=== PATIENT | female | born 1960 | race Hispanic/Latino ===

== ENCOUNTER 2017-03-11 18:45 | Emergency (ER) | payer MEDICARE ==
[~2017-03-11 18:45] MED LIST: CALC667T5 PO; CARV6.25 PO; CHOL200013 PO; CLON0.2T PO; FOLI1TAB85 PO; HYDR-3421 PO; HYDR100T27 PO; INSU3INS5 SQ; LEVO250T2 PO; LOSA100T29 PO; PRAV20TA4 PO
[2017-03-11 19:21] LABS: CREATININE 4.4 mg/dL (0.5-1.5); HEMATOCRIT 26.7 % (36-48); LYMPHOCYTES % (AUTO) 14.3 % (21.0-51.0); MEAN CORPUSCULAR HEMOGLOBIN 32.9 pg (27.0-33.0); MEAN CORPUSCULAR HGB CONC 33.4 g/dL (32.0-36.0); MEAN CORPUSCULAR VOLUME 98.5 fL (79-99); MONOCYTES % (AUTO) 9.2 % (3.0-13.0); NEUTROPHILS % (AUTO) 69.5 % (40.0-77.0); NUCLEATED RED BLOOD CELLS 0.1 % (0.0-0.19); PLATELET COUNT (AUTO) 73 K/uL (130-400); POTASSIUM 4.1 mmol/L (3.5-5.1); RED BLOOD CELL COUNT(AUTO) 2.71 MIL/uL (4.00-5.50); RED CELL DISTRIBUTION WIDTH 18.4 % (11.0-15.5); WHITE BLOOD COUNT (AUTO) 3.5 K/uL (4.8-10.8)
[2017-03-11 19:27] LABS: BILIRUBIN,DIRECT 0.2 mg/dL (0.0-0.3); BILIRUBIN,TOTAL 0.8 mg/dL (0.2-1.0); TOTAL PROTEIN, SERUM 5.8 g/dL (6.0-8.3)
[2017-03-11] MEDS ORDERED: LIDOCAINE 5% TOPICAL PATCH TP ONE (19:39)
[2017-03-11] MEDS ORDERED: TRAMADOL /APAP 37.5MG/325MG TAB ONE (19:40)
[2017-03-11 20:24] LABS: APPEARANCE,URINE CLEAR (CLEAR); BILIRUBIN,URINE NEGATIVE (NEGATIVE); COLOR,URINE YELLOW (YELLOW); GLUCOSE, URINE (UA) 250 mg/dL (NEGATIVE); KETONES,URINE NEGATIVE (NEGATIVE); LEUKOCYTE ESTERASE ,URINE NEGATIVE (NEGATIVE); NITRATE,URINE NEGATIVE (NEGATIVE); OCCULT BLOOD,URINE TRACE-INTACT (NEGATIVE); PH,URINE 8.5 (5.0-8.0); PROTEIN,URINE >=300 (NEGATIVE); UROBILINOGEN,URINE 0.2 mg/dL (0.2-1.0)
[2017-03-11 20:40] LABS: BACTERIA,URINE Rare /HPF (None Seen); SQUAMOUS EPITHELIAL CELL,UR Rare /LPF (0-2); WBC,URINE 0-1 /HPF (0-1)
== END 2017-03-11 21:33 | disposition home or self-care (01) ==
LOC: EDH 18:45
DX: M54.6 Pain in thoracic spine (principal); R07.9 Chest pain, unspecified; D64.9 Anemia, unspecified; B02.9 Zoster without complications; J44.9 Chronic obstructive pulmonary disease, unspecified; I12.0 Hypertensive chronic kidney disease with stage 5 chronic kidney disease or end stage renal disease; E11.22 Type 2 diabetes mellitus with diabetic chronic kidney disease; N18.6 End stage renal disease; Z99.2 Dependence on renal dialysis
CPT/HCPCS: 36415; 80048; 80076; 81001; 83690; 84484; 85025; 93005

== ENCOUNTER 2017-04-01 09:36 | Emergency (ER) | payer MEDICARE ==
[2017-04-01 09:53] LABS: BASOPHILS % (AUTO) 2.8 % (0.0-5.0); EOSINOPHILS % (AUTO) 4.4 % (0.0-8.0); HEMATOCRIT 31.3 % (36-48); LYMPHOCYTES % (AUTO) 16.6 % (21.0-51.0); MEAN CORPUSCULAR HEMOGLOBIN 34.3 pg (27.0-33.0); MEAN CORPUSCULAR HGB CONC 34.1 g/dL (32.0-36.0); MEAN CORPUSCULAR VOLUME 100.5 fL (79-99); MONOCYTES % (AUTO) 6.9 % (3.0-13.0); NEUTROPHILS % (AUTO) 69.3 % (40.0-77.0); NUCLEATED RED BLOOD CELLS 0.1 % (0.0-0.19); PLATELET COUNT (AUTO) 129 K/uL (130-400); RED BLOOD CELL COUNT(AUTO) 3.11 MIL/uL (4.00-5.50); RED CELL DISTRIBUTION WIDTH 18.7 % (11.0-15.5); WHITE BLOOD COUNT (AUTO) 4.5 K/uL (4.8-10.8)
[2017-04-01 10:02] LABS: POTASSIUM 4.3 mmol/L (3.5-5.1)
== END 2017-04-01 14:40 | disposition home or self-care (01) ==
LOC: EDH 09:36
DX: E87.70 Fluid overload, unspecified (principal); E11.22 Type 2 diabetes mellitus with diabetic chronic kidney disease; I12.0 Hypertensive chronic kidney disease with stage 5 chronic kidney disease or end stage renal disease; N18.6 End stage renal disease; E78.5 Hyperlipidemia, unspecified; Z79.4 Long term (current) use of insulin; Z99.2 Dependence on renal dialysis
CPT/HCPCS: 36415; 71045; 80048; 84484; 85025; 93005

== ENCOUNTER 2017-05-01 21:53 | Inpatient (IN) | payer MEDICARE ==
[~2017-05-01] VITALS: Ht 157.5 cm; Wt 67.2 kg
[2017-05-01 22:17] LABS: EOSINOPHILS % (AUTO) 0.5 % (0.0-8.0); HEMATOCRIT 30.5 % (36-48); LYMPHOCYTES % (AUTO) 19.5 % (21.0-51.0); MEAN CORPUSCULAR HEMOGLOBIN 33.1 pg (27.0-33.0); MEAN CORPUSCULAR HGB CONC 33.5 g/dL (32.0-36.0); MONOCYTES % (AUTO) 12.6 % (3.0-13.0); NEUTROPHILS % (AUTO) 66.4 % (40.0-77.0); PLATELET COUNT (AUTO) 66 K/uL (130-400); RED BLOOD CELL COUNT(AUTO) 3.09 MIL/uL (4.00-5.50); RED CELL DISTRIBUTION WIDTH 15.7 % (11.0-15.5); WHITE BLOOD COUNT (AUTO) 3.5 K/uL (4.8-10.8)
[2017-05-01 22:24] LABS: CREATININE 6.7 mg/dL (0.5-1.5); POTASSIUM 5.3 mmol/L (3.5-5.1)
[2017-05-01 22:29] LABS: ALBUMIN 3.1 g/dL (3.5-5.0); BILIRUBIN,TOTAL 0.9 mg/dL (0.2-1.0); TOTAL PROTEIN, SERUM 6.3 g/dL (6.0-8.3)
[2017-05-01] MEDS ORDERED: ONDANSETRON HCL 4 MG/2 ML VIAL ONE (22:57)
[2017-05-02] MEDS ORDERED: FUROSEMIDE 10 MG/ML 4ML VIAL ONE (00:36)
[2017-05-02] MEDS ORDERED: CEFTRIAXONE SODIUM 2 GM VIAL ONE (00:36)
[2017-05-02 06:26] LABS: CREATININE 7.3 mg/dL (0.5-1.5); INR 1.3 (0.85-1.15); PARTIAL THROMBOPLASTIN TIME 28.8 SEC (26.3-35.5); POTASSIUM 5.3 mmol/L (3.5-5.1); PROTHROMBIN TIME 13.6 SEC (9.6-11.6)
[2017-05-02 06:32] LABS: BASOPHILS % (AUTO) 1.4 % (0.0-5.0); EOSINOPHILS % (AUTO) 0.9 % (0.0-8.0); HEMATOCRIT 30.5 % (36-48); LYMPHOCYTES % (AUTO) 18.4 % (21.0-51.0); MEAN CORPUSCULAR HEMOGLOBIN 34.6 pg (27.0-33.0); MEAN CORPUSCULAR HGB CONC 34.5 g/dL (32.0-36.0); MEAN CORPUSCULAR VOLUME 100.1 fL (79-99); MONOCYTES % (AUTO) 8.5 % (3.0-13.0); NEUTROPHILS % (AUTO) 70.8 % (40.0-77.0); NUCLEATED RED BLOOD CELLS 0.1 % (0.0-0.19); PLATELET COUNT (AUTO) 71 K/uL (130-400); RED BLOOD CELL COUNT(AUTO) 3.05 MIL/uL (4.00-5.50); RED CELL DISTRIBUTION WIDTH 15.8 % (11.0-15.5); WHITE BLOOD COUNT (AUTO) 3.3 K/uL (4.8-10.8)
[2017-05-02] MEDS ORDERED: ONDANSETRON HCL 4 MG/2 ML VIAL ONE (06:40)
[2017-05-02 07:28] LABS: B-TYPE NATRIURETIC PEPTIDE 3840 pg/mL (0-100)
[2017-05-02 09:38] VITALS: BP 181/72
[2017-05-02] MEDS ORDERED: GLUCAGON 1MG KIT 1 MG ML IM PRN (09:45)
[2017-05-02] MEDS ORDERED: MORPHINE SULFATE 2 MG/ML 1ML SYG IVP PRN (09:45)
[2017-05-02] MEDS ORDERED: POTASSIUM CHLORIDE 10% ELIXIR 20 MEQ/15 ML UDCUP PO PRN (09:45)
[2017-05-02] MEDS ORDERED: NITROGLYCERIN 0.4 MG SL TAB SL PRN (09:45)
[2017-05-02] MEDS ORDERED: CLONIDINE HCL 0.1 MG TABLET PO PRN (09:45)
[2017-05-02] MEDS ORDERED: LIDOCAINE HCL-MPF 1% 2ML VIAL IJ PRN (09:45)
[2017-05-02] MEDS ORDERED: POTASSIUM CHLORIDE 20MEQ/100ML 100 ML IV PRN (09:45)
[2017-05-02] MEDS ORDERED: POTASSIUM CHLORIDE 20 MEQ ERTAB PO PRN (09:45)
[2017-05-02] MEDS ORDERED: SODIUM CHLORIDE 0.9% 10 ML VIAL IVP SCH (09:45)
[2017-05-02] MEDS ORDERED: ONDANSETRON HCL 4 MG/2 ML VIAL IVP PRN (09:45)
[2017-05-02] MEDS ORDERED: LACTULOSE 20 GM/30 ML UDCUP PO PRN (09:45)
[2017-05-02] MEDS ORDERED: IPRATROPIUM/ALBUTEROL SULFATE 3 ML SOLUTION IH PRN (09:45)
[2017-05-02] MEDS ORDERED: DEXTROSE 50%-WATER 50 ML DISP.SYRIN IV PRN (09:45)
[2017-05-02] MEDS ORDERED: ACETAMINOPHEN 325 MG TAB PO PRN ×2 (09:45)
[2017-05-02 11:00] VITALS: BP 181/69
[2017-05-02] MEDS: INSULIN R PO SSI SQ SCH ×3 (11:30→21:43)
[2017-05-02] MEDS: HYDRALAZINE HCL 25 MG TABLET PO SCH ×3 (14:00→21:31)
[2017-05-02] MEDS: CLONIDINE HCL 0.2 MG TABLET PO SCH ×3 (14:00→21:35)
[2017-05-02] MEDS ORDERED: 0.9% SODIUM CHLORIDE 250 ML IV BAG IV PRN (14:15)
[2017-05-02] MEDS ORDERED: HEPARIN SODIUM 5000UNIT/ML 1ML VIAL IJ PRN (14:15)
[2017-05-02] MEDS ORDERED: SODIUM CHLORIDE 0.9% 1000ML 1,000 ML IV PRN (14:15)
[2017-05-02] MEDS ORDERED: ALBUMIN (HUMAN) 25% 100 ML IV PRN (14:15)
[2017-05-02 16:00] VITALS: BP 210/91
[2017-05-02] MEDS: CALCIUM ACETATE 667 MG CAPSULE PO SCH (17:04)
[2017-05-02 20:00] VITALS: BP 184/71
[2017-05-02] MEDS: HYDROXYZINE HCL 25 MG TABLET PO SCH (21:35)
[2017-05-02] MEDS: LOSARTAN 100 MG TABLET PO SCH (21:35)
[2017-05-02] MEDS: CARVEDILOL 6.25 MG TABLET PO SCH (21:36)
[2017-05-03] VITALS (12 sets, daily range): BP systolic 139–187; BP diastolic 56–82
[2017-05-03 03:57] LABS: CREATININE 5.7 mg/dL (0.5-1.5); PHOSPHORUS 5.6 mg/dL (2.5-4.9); POTASSIUM 5.2 mmol/L (3.5-5.1)
[2017-05-03 03:59] LABS: INR 1.39 (0.85-1.15); PARTIAL THROMBOPLASTIN TIME 31.2 SEC (26.3-35.5); PROTHROMBIN TIME 14.5 SEC (9.6-11.6)
[2017-05-03] MEDS: INSULIN R PO SSI SQ SCH ×4 (07:30→21:00)
[2017-05-03] MEDS: HYDRALAZINE HCL 25 MG TABLET PO SCH ×3 (09:18→21:16)
[2017-05-03] MEDS: CARVEDILOL 6.25 MG TABLET PO SCH ×2 (09:19→21:16)
[2017-05-03] MEDS: CLONIDINE HCL 0.2 MG TABLET PO SCH ×3 (09:20→21:15)
[2017-05-03] MEDS: ATORVASTATIN CALCIUM 10 MG TABLET PO SCH (09:20)
[2017-05-03] MEDS: CALCIUM ACETATE 667 MG CAPSULE PO SCH ×2 (12:00→15:58)
[2017-05-03] MEDS ORDERED: SODIUM POLYSTYRENE SULFONATE 15 GM/60 ML ML ONE (15:36)
[2017-05-03] MEDS ORDERED: SODIUM POLYSTYRENE SULFONATE 15 GM/60 ML ML RC ONE (16:00)
[2017-05-03] MEDS: LOSARTAN 100 MG TABLET PO SCH (21:16)
[2017-05-03] MEDS: HYDROXYZINE HCL 25 MG TABLET PO SCH (21:16)
[2017-05-04] VITALS: BP 174/72
[2017-05-04 04:00] VITALS: BP 162/60
[2017-05-04 04:06] LABS: CREATININE 7.1 mg/dL (0.5-1.5); POTASSIUM 4.6 mmol/L (3.5-5.1)
[2017-05-04 04:07] LABS: HEMATOCRIT 28.8 % (36-48); MEAN CORPUSCULAR HEMOGLOBIN 34.3 pg (27.0-33.0); NUCLEATED RED BLOOD CELLS 0.1 % (0.0-0.19); PLATELET COUNT (AUTO) 72 K/uL (130-400); RED BLOOD CELL COUNT(AUTO) 2.93 MIL/uL (4.00-5.50); WHITE BLOOD COUNT (AUTO) 3.4 K/uL (4.8-10.8)
[2017-05-04] MEDS: INSULIN R PO SSI SQ SCH ×3 (06:52→16:30)
[2017-05-04 08:00] VITALS: BP 194/74
[2017-05-04] MEDS: CALCIUM ACETATE 667 MG CAPSULE PO SCH ×3 (08:35→16:58)
[2017-05-04] MEDS ORDERED: FOLIC ACID/VITAMIN B COMP W-C 1 MG CAPSULE PO SCH (09:00)
[2017-05-04] MEDS: HYDRALAZINE HCL 25 MG TABLET PO SCH ×2 (09:30→16:58)
[2017-05-04] MEDS: CLONIDINE HCL 0.2 MG TABLET PO SCH ×2 (09:30→16:57)
[2017-05-04] MEDS: ATORVASTATIN CALCIUM 10 MG TABLET PO SCH (09:31)
[2017-05-04] MEDS: CARVEDILOL 6.25 MG TABLET PO SCH (09:31)
[2017-05-04 11:00] VITALS: BP 177/68
[2017-05-04] MEDS ORDERED: ALBUMIN (HUMAN) 25% 100 ML IV PRN (15:00)
[2017-05-04] MEDS ORDERED: HEPARIN SODIUM 5000UNIT/ML 1ML VIAL IJ PRN (15:00)
[2017-05-04] MEDS ORDERED: 0.9% SODIUM CHLORIDE 250 ML IV BAG IV PRN (15:00)
[2017-05-04] MEDS ORDERED: SODIUM CHLORIDE 0.9% 1000ML 1,000 ML IV PRN (15:00)
[2017-05-04 16:00] VITALS: BP 170/75
[2017-05-04 16:57] VITALS: BP 170/75
== END 2017-05-04 18:35 | disposition home or self-care (01) | DRG 291 ==
LOC: EDH 21:53 → EDHIP 05-02 02:20 → OBSVTOIN 05-02 02:20 → 3BH 05-02 09:30
PROVIDERS: ADMIT Family Medicine; ATTEND Family Medicine
PROC: 5A1D70Z Performance of Urinary Filtration, Intermittent, Less than 6 Hours Per Day (ICD-10-PCS; principal; 2017-05-02)
PROC: 5A1D70Z Performance of Urinary Filtration, Intermittent, Less than 6 Hours Per Day (ICD-10-PCS; 2017-05-04)
DX: I13.2 Hypertensive heart and chronic kidney disease with heart failure and with stage 5 chronic kidney disease, or end stage renal disease (principal); N18.6 End stage renal disease; E11.22 Type 2 diabetes mellitus with diabetic chronic kidney disease; E11.51 Type 2 diabetes mellitus with diabetic peripheral angiopathy without gangrene; D69.6 Thrombocytopenia, unspecified; E87.5 Hyperkalemia; I50.23 Acute on chronic systolic (congestive) heart failure; I34.0 Nonrheumatic mitral (valve) insufficiency; E87.70 Fluid overload, unspecified; I43 Cardiomyopathy in diseases classified elsewhere; D63.8 Anemia in other chronic diseases classified elsewhere; J44.9 Chronic obstructive pulmonary disease, unspecified; E78.5 Hyperlipidemia, unspecified; D72.819 Decreased white blood cell count, unspecified; E78.00 Pure hypercholesterolemia, unspecified; I16.0 Hypertensive urgency; I25.10 Atherosclerotic heart disease of native coronary artery without angina pectoris; Z99.2 Dependence on renal dialysis; Z91.19 Patient's noncompliance with other medical treatment and regimen; Z83.3 Family history of diabetes mellitus; Z82.49 Family history of ischemic heart disease and other diseases of the circulatory system
CPT/HCPCS: 36415; 71045; 71046; 80048; 80053; 82948; 83880; 84100; 84484; 85025; 85027; 85610; 85730; 87040; 90935; 93005; 93306; 94664; 99291; J0696; J1815; J1940; J2405; J7030

== ENCOUNTER 2018-08-23 02:36 | Inpatient (IN) | payer MEDICARE ==
[~2018-08-23] VITALS: Ht 154.9 cm; Wt 66.0 kg
[~2018-08-23 02:36] MED LIST changes: +ASPI-555 PO; +ATOR20TA65 PO; -CALC667T5 PO; +CARV12.511 PO; -CARV6.25 PO; -HYDR-3421 PO; -LOSA100T29 PO; +LOSA100T58 PO; -PRAV20TA4 PO; +TRAZ-185 PO
[2018-08-23] MEDS ORDERED: CALCIUM GLUCONATE 1 GM/10 ML VIAL IV ONE (02:39)
[2018-08-23] MEDS ORDERED: SODIUM BICARB 50MEQ 50ML VIAL ONE (02:43)
[2018-08-23] MEDS ORDERED: DEXTROSE 50%-WATER 50 ML DISP.SYRIN IV ONE (02:50)
[2018-08-23] MEDS ORDERED: INSULIN HUMULIN R 100 UNIT/ML 3ML ONE (02:52)
[2018-08-23 03:16] LABS: ABG BASE EXCESS -2.2 mmol/L (-2.0-3.0); ABG HCO3 22.9 mmol/L (21.0-28.0); ABG OXYGEN SATURATION 97.8 % (95.0-99.0); ABG PCO2 41 mmHg (32-45)
[2018-08-23 03:19] LABS: BASOPHILS % (AUTO) 1.2 % (0.0-5.0); EOSINOPHILS % (AUTO) 2.1 % (0.0-8.0); HEMATOCRIT 40.7 % (36-48); LYMPHOCYTES % (AUTO) 10.6 % (21.0-51.0); MEAN CORPUSCULAR HEMOGLOBIN 35.9 pg (27.0-33.0); MEAN CORPUSCULAR HGB CONC 34.6 g/dL (32.0-36.0); MEAN CORPUSCULAR VOLUME 103.7 fL (79-99); MONOCYTES % (AUTO) 10.5 % (3.0-13.0); NEUTROPHILS % (AUTO) 75.6 % (40.0-77.0); NUCLEATED RED BLOOD CELLS 0.1 % (0.0-0.19); PLATELET COUNT (AUTO) 182 K/uL (130-400); RED BLOOD CELL COUNT(AUTO) 3.92 MIL/uL (4.00-5.50); RED CELL DISTRIBUTION WIDTH 14.1 % (11.0-15.5); WHITE BLOOD COUNT (AUTO) 7.8 K/uL (4.8-10.8)
[2018-08-23 03:19] LABS: ABG BASE EXCESS -3.5 mmol/L (-2.0-3.0); ABG PCO2 36 mmHg (32-45)
[2018-08-23] MEDS ORDERED: ALBUTEROL SULFATE 0.083% 2.5 MG/3 ML INH IH ONE (03:29)
[2018-08-23 03:33] LABS: ALBUMIN 3.7 g/dL (3.5-5.0); BILIRUBIN,DIRECT 0.2 mg/dL (0.0-0.3); BILIRUBIN,TOTAL 0.5 mg/dL (0.2-1.0); TOTAL PROTEIN, SERUM 7.4 g/dL (6.0-8.3)
[2018-08-23 03:43] LABS: B-TYPE NATRIURETIC PEPTIDE 291 pg/mL (0-100)
[2018-08-23 03:58] LABS: POTASSIUM 9.6 mmol/L (3.5-5.1)
[2018-08-23 03:59] LABS: CREATININE 17.4 mg/dL (0.5-1.5)
[2018-08-23] MEDS ORDERED: NITROGLYCERIN 0.4 MG SL TAB SL PRN (05:30)
[2018-08-23] MEDS ORDERED: ACETAMINOPHEN 325 MG TAB PO PRN ×2 (05:30)
[2018-08-23] MEDS ORDERED: ONDANSETRON HCL 4 MG/2 ML VIAL IV PRN (05:30)
[2018-08-23] MEDS ORDERED: GLUCAGON 1MG KIT 1 MG ML IM PRN (05:30)
[2018-08-23] MEDS ORDERED: DEXTROSE 50%-WATER 50 ML DISP.SYRIN IV PRN (05:30)
[2018-08-23 05:52] LABS: HEMOGLOBIN A1C 6.7 % (4.0-6.0)
[2018-08-23] MEDS ORDERED: IPRATROPIUM/ALBUTEROL SULFATE 3 ML SOLUTION IH PRN (06:15)
[2018-08-23 06:37] LABS: MAGNESIUM 3.3 mg/dL (1.80-2.40)
[2018-08-23 07:29] LABS: PHOSPHORUS 13.7 mg/dL (2.5-4.9)
[2018-08-23] MEDS: INSULIN HUMULIN R 100 UNIT/ML 3ML SQ SCH ×4 (07:30→20:55)
[2018-08-23] MEDS: FAMOTIDINE 20MG TAB 20 MG TAB PO SCH (09:00)
[2018-08-23] MEDS: ENOXAPARIN SODIUM 30 MG/0.3 ML SQ SCH (09:00)
[2018-08-23] MEDS: ASPIRIN 325MG EC TAB 325 MG TABLET.DR PO SCH (09:00)
[2018-08-23 11:31] LABS: TROPONIN I 0.09 ng/mL (0.00-0.06)
[2018-08-23 12:00] VITALS: BP 150/68
[2018-08-23 13:03] LABS: CREATININE 7.1 mg/dL (0.5-1.5); POTASSIUM 4.2 mmol/L (3.5-5.1)
[2018-08-23] MEDS: SEVELAMER HCL 800 MG TABLET PO SCH ×2 (13:40→19:03)
[2018-08-23 16:37] VITALS: BP 149/69
[2018-08-23 19:25] LABS: TROPONIN I 0.09 ng/mL (0.00-0.06)
[2018-08-23 19:30] VITALS: BP 154/70
[2018-08-24] VITALS: BP 156/67
[2018-08-24 04:00] VITALS: BP 165/74
[2018-08-24 04:49] LABS: BASOPHILS % (AUTO) 1.1 % (0.0-5.0); EOSINOPHILS % (AUTO) 3.5 % (0.0-8.0); HEMATOCRIT 36.6 % (36-48); LYMPHOCYTES % (AUTO) 17.2 % (21.0-51.0); MEAN CORPUSCULAR HEMOGLOBIN 35.1 pg (27.0-33.0); MEAN CORPUSCULAR VOLUME 103.3 fL (79-99); MONOCYTES % (AUTO) 18.9 % (3.0-13.0); NEUTROPHILS % (AUTO) 59.3 % (40.0-77.0); PLATELET COUNT (AUTO) 170 K/uL (130-400); RED BLOOD CELL COUNT(AUTO) 3.54 MIL/uL (4.00-5.50); RED CELL DISTRIBUTION WIDTH 13.9 % (11.0-15.5); WHITE BLOOD COUNT (AUTO) 5.1 K/uL (4.8-10.8)
[2018-08-24 04:56] LABS: ALBUMIN 2.9 g/dL (3.5-5.0); ASPARTATE AMINOTRANSFERASE 17 U/L (10-37); BILIRUBIN,TOTAL 0.5 mg/dL (0.2-1.0); CARBON DIOXIDE 30 mmol/L (21-32); CHLORIDE 95 mmol/L (101-111); GLOMERULAR FILTR. RATE CALC 4 mL/min (>60); GLUCOSE,RANDOM 107 mg/dL (70-105); PHOSPHORUS 8.3 mg/dL (2.5-4.9); SODIUM SERUM 136 mmol/L (136-145); TOTAL PROTEIN, SERUM 6.3 g/dL (6.0-8.3); UREA NITROGEN, BLOOD 52 mg/dL (7-18)
[2018-08-24 04:57] LABS: ALANINE AMINOTRANSFERASE < 6 U/L (12-78)
[2018-08-24 05:01] LABS: POTASSIUM 6.1 mmol/L (3.5-5.1)
--- NOTE | 2018-08-24 06:32 | NUR ---
CRITICAL VALUES PAGED DR RIVER TO REPORT K 6.1
[2018-08-24] MEDS: INSULIN HUMULIN R 100 UNIT/ML 3ML SQ SCH ×4 (07:10→21:00)
[2018-08-24 08:00] VITALS: BP 178/73
--- NOTE | 2018-08-24 08:12 | NUR ---
informed dr. eugene and dr zamarripa for the consult no orders was given.
[2018-08-24] MEDS ORDERED: SODIUM POLYSTYRENE SULFONATE 15 GM/60 ML ML PO SCH (08:15)
[2018-08-24] MEDS: FAMOTIDINE 20MG TAB 20 MG TAB PO SCH (09:59)
[2018-08-24] MEDS: SEVELAMER HCL 800 MG TABLET PO SCH ×3 (09:59→17:00)
[2018-08-24] MEDS: CARVEDILOL 12.5 MG TABLET PO SCH ×2 (10:00→20:04)
[2018-08-24] MEDS: ASPIRIN 325MG EC TAB 325 MG TABLET.DR PO SCH (10:00)
[2018-08-24] MEDS: ENOXAPARIN SODIUM 30 MG/0.3 ML SQ SCH (10:01)
[2018-08-24] MEDS: HYDRALAZINE HCL 25 MG TABLET PO SCH ×3 (10:09→20:03)
[2018-08-24] MEDS: FOLIC ACID/VITAMIN B COMP W-C 1 MG CAPSULE PO SCH (10:14)
[2018-08-24 11:00] VITALS: BP 201/84
[2018-08-24 11:22] VITALS: BP 164/78
--- NOTE | 2018-08-24 13:28 | NUR ---
RICKY Campbell met with pt and Ej [place] [phone]. Pt is on SSD for ESRD. Goes to [facility] [place] [facility] at 2:25. transports. Pt has provider 3hrs daily thru [facility]. Pt has no DME or HH. [place] Addendum: 08/24/18 at 1330 by GINNY SRINIVASAN SS Amended: Links added.
--- NOTE | 2018-08-24 13:42 | NUR ---
Diet education: Nutrition education provided on diabetes and emphasis on dialysis diet. Pt reports being on dialysis for 3years. Pt encouraged to follow up with Renal dietitian for outpatient diet education. Pt verbalize understanding and reports good rapport with her Renal Dietitian. Addendum: 08/24/18 at [address] Amended: Links added.
--- NOTE | 2018-08-24 13:45 | NUR ---
Nutrition intervention: Nutrition notification for uncontrolled DM, ESRD. Pt admitted for hyperkalemia, ESRD. Pt on renal dialysis diet, CC75gm with good oral intake. Pt educated on DM and dialysis diet. Pt verbalized understanding. Pt with no nutritional concerns. Pt encouraged to f/u with renal dietitian in dialysis center for continued nutrition education. Recommendations: Continue current diet therapy. Consult RUCHI as nutrition Addendum: 08/24/18 at [address] Amended: Links added.
[2018-08-24 20:00] VITALS: BP 193/77
[2018-08-24] MEDS ORDERED: TRAZODONE HCL 50 MG TAB PO SCH (21:00)
[2018-08-24] MEDS ORDERED: LOSARTAN 100 MG TABLET PO SCH (21:00)
[2018-08-24] MEDS ORDERED: ATORVASTATIN CALCIUM 20 MG TABLET PO SCH (21:00)
[2018-08-25] VITALS: BP 139/65
[2018-08-25 04:00] VITALS: BP 148/69
[2018-08-25 04:57] LABS: BASOPHILS % (AUTO) 0.9 % (0.0-5.0); EOSINOPHILS % (AUTO) 5.2 % (0.0-8.0); LYMPHOCYTES % (AUTO) 21.9 % (21.0-51.0); MEAN CORPUSCULAR HEMOGLOBIN 35.2 pg (27.0-33.0); MEAN CORPUSCULAR HGB CONC 33.8 g/dL (32.0-36.0); MEAN CORPUSCULAR VOLUME 104.2 fL (79-99); MONOCYTES % (AUTO) 16.4 % (3.0-13.0); NEUTROPHILS % (AUTO) 55.6 % (40.0-77.0); PLATELET COUNT (AUTO) 160 K/uL (130-400); RED BLOOD CELL COUNT(AUTO) 3.65 MIL/uL (4.00-5.50); RED CELL DISTRIBUTION WIDTH 14.3 % (11.0-15.5); WHITE BLOOD COUNT (AUTO) 4.2 K/uL (4.8-10.8)
[2018-08-25 05:19] LABS: POTASSIUM 5.6 mmol/L (3.5-5.1)
[2018-08-25 05:23] LABS: CREATININE 11.5 mg/dL (0.5-1.5)
[2018-08-25] MEDS: INSULIN HUMULIN R 100 UNIT/ML 3ML SQ SCH ×3 (06:28→16:30)
[2018-08-25 07:30] VITALS: BP 172/70
[2018-08-25] MEDS: SEVELAMER HCL 800 MG TABLET PO SCH ×3 (08:00→16:48)
[2018-08-25] MEDS: HYDRALAZINE HCL 25 MG TABLET PO SCH ×2 (09:00→14:00)
[2018-08-25] MEDS ORDERED: ASPIRIN 81 MG EC TAB PO SCH (09:00)
[2018-08-25] MEDS: ASPIRIN 325MG EC TAB 325 MG TABLET.DR PO SCH (09:00)
[2018-08-25] MEDS: FOLIC ACID/VITAMIN B COMP W-C 1 MG CAPSULE PO SCH (09:00)
[2018-08-25] MEDS: CARVEDILOL 12.5 MG TABLET PO SCH (09:00)
[2018-08-25] MEDS: FAMOTIDINE 20MG TAB 20 MG TAB PO SCH (09:00)
[2018-08-25 11:00] VITALS: BP 176/72
[2018-08-25] MEDS: ENOXAPARIN SODIUM 30 MG/0.3 ML SQ SCH (12:41)
[2018-08-25] MEDS ORDERED: DIPHENHYDRAMINE HCL 25 MG CAPSULE PO STA (14:12)
[2018-08-25] MEDS ORDERED: DIPHENHYDRAMINE HCL 50 MG CAPSULE PO ONE (14:15)
[2018-08-25 16:00] VITALS: BP 206/91
--- NOTE | 2018-08-25 16:23 | NUR ---
BELLY DANCER REPORTED THAT THE PATIENT'S BLOOD SUGAR IS 55. PATIENT WAS LETHARGIC AND WAS COLD AND CLAMMY BUT STILL AROUSABLE TO VOICE AND FOLLOWS COMMANDS. PATIENT WAS GIVEN D50 12.5 MG AND WAS ALSO GIVEN APPLE JUICE. PATIENT WAS ABLE TO BE MORE CONSCIOUS AND ALERT. REPORTED THE INCIDENT TO BEKAH TUBING TESTER OF THE HOSPITALIST TEAM AND ORDERED TO HOLD DISCHARGE AND CHECK BLOOD SUGAR AGAIN. DISCHARGE WHEN THE SUGAR IS IN DESIRED LEVEL.
[2018-08-25 17:47] VITALS: BP 158/78
== END 2018-08-25 18:14 | disposition home or self-care (01) | DRG 622 ==
LOC: EDH 02:36 → EDHIP 05:28 → 4CH 11:59
PROVIDERS: ADMIT Internal Medicine; ATTEND Internal Medicine
PROC: 5A1D70Z Performance of Urinary Filtration, Intermittent, Less than 6 Hours Per Day (ICD-10-PCS; 2018-08-23)
PROC: 0JBQ0ZZ Excision of Right Foot Subcutaneous Tissue and Fascia, Open Approach (ICD-10-PCS; principal; 2018-08-24)
PROC: 0JDR0ZZ Extraction of Left Foot Subcutaneous Tissue and Fascia, Open Approach (ICD-10-PCS; 2018-08-24)
PROC: 0HBRXZZ Excision of Toe Nail, External Approach (ICD-10-PCS; 2018-08-24)
PROC: 0HBRXZZ Excision of Toe Nail, External Approach (ICD-10-PCS; 2018-08-24)
PROC: 0HBRXZZ Excision of Toe Nail, External Approach (ICD-10-PCS; 2018-08-24)
PROC: 0HBRXZZ Excision of Toe Nail, External Approach (ICD-10-PCS; 2018-08-24)
PROC: 0HBRXZZ Excision of Toe Nail, External Approach (ICD-10-PCS; 2018-08-24)
PROC: 0HBRXZZ Excision of Toe Nail, External Approach (ICD-10-PCS; 2018-08-24)
PROC: 0HBRXZZ Excision of Toe Nail, External Approach (ICD-10-PCS; 2018-08-24)
PROC: 0HBRXZZ Excision of Toe Nail, External Approach (ICD-10-PCS; 2018-08-24)
PROC: 0HBRXZZ Excision of Toe Nail, External Approach (ICD-10-PCS; 2018-08-24)
PROC: 0HBRXZZ Excision of Toe Nail, External Approach (ICD-10-PCS; 2018-08-24)
PROC: 5A1D70Z Performance of Urinary Filtration, Intermittent, Less than 6 Hours Per Day (ICD-10-PCS; 2018-08-25)
DX: E87.5 Hyperkalemia (principal); N18.6 End stage renal disease; I12.0 Hypertensive chronic kidney disease with stage 5 chronic kidney disease or end stage renal disease; Z99.2 Dependence on renal dialysis; E11.22 Type 2 diabetes mellitus with diabetic chronic kidney disease; B35.1 Tinea unguium; E11.51 Type 2 diabetes mellitus with diabetic peripheral angiopathy without gangrene; E11.621 Type 2 diabetes mellitus with foot ulcer; E78.00 Pure hypercholesterolemia, unspecified; E78.5 Hyperlipidemia, unspecified; I45.10 Unspecified right bundle-branch block; L89.890 Pressure ulcer of other site, unstageable; E83.39 Other disorders of phosphorus metabolism; J44.9 Chronic obstructive pulmonary disease, unspecified; L84 Corns and callosities; L85.3 Xerosis cutis; L97.519 Non-pressure chronic ulcer of other part of right foot with unspecified severity; Z82.49 Family history of ischemic heart disease and other diseases of the circulatory system; Z91.15 Patient's noncompliance with renal dialysis; Z91.19 Patient's noncompliance with other medical treatment and regimen
CPT/HCPCS: 36415; 36600; 71045; 73630; 80048; 80053; 80076; 82435; 82550; 82803; 82947; 82948; 83036; 83605; 83690; 83735; 83874; 83880; 84100; 84132; 84295; 84484; 85018; 85025; 87070; 87076; 87077; 87186; 90935; 93005; 94640; 94664; 99291; G0378; J0610; J1650; J1815; J3490; J7070; Q0163

== ENCOUNTER → 2019-08-14 | Outpatient (CLI) | payer MEDICARE ==
[~2019-08-14] MED LIST changes: -ASPI-555 PO; +ASPI-556 PO
== END | disposition home or self-care (01) ==
LOC: SLP 20:55
PROVIDERS: ATTEND Internal Medicine Critical Care Medicine
DX: G47.30 Sleep apnea, unspecified (principal); G47.00 Insomnia, unspecified
CPT/HCPCS: 95810

== ENCOUNTER 2020-10-15 14:03 | Emergency (ER) | payer MEDICARE ==
[~2020-10-15] VITALS: Ht 157.5 cm; Wt 81.6 kg
[2020-10-15 14:06] VITALS: BP 198/70
[2020-10-15] MEDS ORDERED: HYDROCODONE/ACETAMINOPHEN 10/325 MG TAB PO ONE (14:30)
[2020-10-15] MEDS ORDERED: CYCLOBENZAPRINE HCL 10 MG TABLET PO ONE (14:30)
[2020-10-15] MEDS ORDERED: CYCLOBENZAPRINE HCL 10 MG TABLET ONE (14:35)
[2020-10-15] MEDS ORDERED: HYDROCODONE/ACETAMINOPHEN 10/325 MG TAB ONE (14:36)
[2020-10-15 14:57] VITALS: BP 185/75
[2020-10-15] MEDS ORDERED: CYCL10 PO (17:03)
[2020-10-15] MEDS ORDERED: MELO7.5T12 PO (17:03)
[2020-10-15] MEDS ORDERED: ACET-2247 PO (17:09)
[2020-10-15 18:08] VITALS: BP 163/91
== END 2020-10-15 18:17 | disposition home or self-care (01) ==
LOC: EDH 14:03
DX: M54.5 Low back pain (principal); I10 Essential (primary) hypertension; I25.10 Atherosclerotic heart disease of native coronary artery without angina pectoris; E11.9 Type 2 diabetes mellitus without complications; F41.9 Anxiety disorder, unspecified; Z99.2 Dependence on renal dialysis; Z79.4 Long term (current) use of insulin; Z98.890 Other specified postprocedural states
CPT/HCPCS: 72131

== ENCOUNTER 2021-03-17 15:26 | Emergency (ER) | payer MEDICARE ==
[~2021-03-17] VITALS: Ht 160 cm; Wt 81.6 kg
[~2021-03-17 15:26] MED LIST changes: +ACET-2247 PO; +CYCL10TA16 PO
[2021-03-17 15:30] VITALS: BP 163/65
[2021-03-17] MEDS ORDERED: GABA300S PO (16:06)
[2021-03-17] MEDS ORDERED: GABAPENTIN 300 MG CAPSULE PO SCH (17:00)
[2021-03-17] MEDS ORDERED: HYDROCODONE/ACETAMINOPHEN 10/325 MG TAB PO ONE (17:00)
== END 2021-03-17 16:51 | disposition home or self-care (01) ==
LOC: EDH 16:00
DX: E11.40 Type 2 diabetes mellitus with diabetic neuropathy, unspecified (principal); I10 Essential (primary) hypertension; Z79.899 Other long term (current) drug therapy

== ENCOUNTER 2021-10-08 19:28 | Inpatient (IN) | payer MEDICARE ==
[~2021-10-08] VITALS: Ht 157.5 cm; Wt 77.6 kg
[~2021-10-08 19:28] MED LIST changes: +AMLO-257 PO; +CALC667C10 PO; -CARV12.511 PO; +CLON0.1T PO; -CLON0.2T PO; -CYCL10TA16 PO; -FOLI1TAB85 PO; +Folic Acid/Vitamin B Comp W-C PO; +INSU100I3 SQ; -INSU3INS5 SQ; -LEVO250T2 PO; +MINO2.5 PO; +SEVE800T27 PO; -TRAZ-185 PO
[2021-10-08] MEDS ORDERED: ACETAMINOPHEN 500 MG TABLET ONE (19:36)
[2021-10-08] MEDS ORDERED: IBUPROFEN 600 MG TABLET ONE (19:37)
[2021-10-08] MEDS ORDERED: CEFTRIAXONE 1G VIAL IVP ONE (20:00)
[2021-10-08] MEDS ORDERED: DEXAMETHASONE SOD PHOSPHATE 4 MG/ML 1ML VIAL IVP ONE (20:00)
[2021-10-08] MEDS ORDERED: DOXYCYCLINE HYCLATE 100 MG TABLET PO SCH (20:00)
[2021-10-08 20:04] LABS: ABG BASE EXCESS 3.8 mmol/L (-2.0-3.0); ABG HCO3 26.8 mmol/L (21.0-28.0); ABG OXYGEN SATURATION 74.7 % (95.0-99.0); ABG PCO2 36 mmHg (32-45)
[2021-10-08 20:13] LABS: BASOPHILS % (AUTO) 0.4 % (0.0-5.0); EOSINOPHILS % (AUTO) 0.2 % (0.0-8.0); HEMATOCRIT 29.9 % (36-48); LYMPHOCYTES % (AUTO) 8.7 % (21.0-51.0); MEAN CORPUSCULAR HEMOGLOBIN 32.3 pg (27.0-33.0); MEAN CORPUSCULAR HGB CONC 34.1 g/dL (32.0-36.0); MEAN CORPUSCULAR VOLUME 94.6 fL (79-99); MONOCYTES % (AUTO) 8.1 % (3.0-13.0); NEUTROPHILS % (AUTO) 80.9 % (40.0-77.0); PLATELET COUNT (AUTO) 139 K/uL (130-400); RED BLOOD CELL COUNT(AUTO) 3.16 MIL/uL (4.00-5.50); RED CELL DISTRIBUTION WIDTH 13.7 % (11.0-15.5); WHITE BLOOD COUNT (AUTO) 5.4 K/uL (4.8-10.8)
[2021-10-08 20:21] LABS: CREATININE 5.8 mg/dL (0.5-1.5)
[2021-10-08 20:28] LABS: ALBUMIN 3.2 g/dL (3.5-5.0); CRP QUANTITATIVE 104.6 mg/L (0.00-9.0); TOTAL PROTEIN, SERUM 7.4 g/dL (6.0-8.3)
[2021-10-08] MEDS ORDERED: ACETAMINOPHEN 500 MG TABLET PO ONE (20:30)
[2021-10-08] MEDS ORDERED: IBUPROFEN 600 MG TABLET PO ONE (20:30)
[2021-10-08] MEDS: NITROGLYCERIN 1GM OINT 1 INCH/1GM TD SCH (21:30)
[2021-10-08] MEDS ORDERED: GLUCAGON 1MG KIT 1 MG ML IM PRN (21:30)
[2021-10-08] MEDS: ALBUTEROL INHALER 90MCG/INH IH SCH (21:30)
[2021-10-08] MEDS ORDERED: DEXAMETHASONE SOD PHOSPHATE 4 MG/ML 1ML VIAL IVP SCH (21:30)
[2021-10-08] MEDS ORDERED: DEXTROSE 50%-WATER 50 ML DISP.SYRIN IV PRN (21:30)
[2021-10-08] MEDS ORDERED: GUAIFENESIN-DM 200/20 MG 10 ML PO PRN (21:30)
[2021-10-08] MEDS ORDERED: ASPIRIN 81MG CHEW TAB PO ONE (21:30)
[2021-10-08] MEDS: CEFTRIAXONE 1G VIAL IVP SCH (21:30)
[2021-10-08] MEDS ORDERED: ACETAMINOPHEN 325 MG TAB PO PRN (21:30)
[2021-10-08] MEDS ORDERED: 0.9%NACL 1000ML 1,000 ML IV SCH (21:30)
[2021-10-08] MEDS ORDERED: PHARMACY COMMUNICATION**REMDESIVIR MISC SCH (23:38)
[2021-10-09] VITALS (23 sets, daily range): BP systolic 119–172; BP diastolic 25–97
[2021-10-09 00:07] LABS: ABG BASE EXCESS -0.4 mmol/L (-2.0-3.0); ABG HCO3 22.8 mmol/L (21.0-28.0); ABG OXYGEN SATURATION 95.3 % (95.0-99.0); ABG PCO2 33 mmHg (32-45)
[2021-10-09] MEDS ORDERED: SOLU-MEDROL 40MG VIAL IVP SCH (03:00)
[2021-10-09] MEDS ORDERED: LABETALOL 20MG VIAL IV PRN (03:30)
[2021-10-09] MEDS ORDERED: HYDRALAZINE HCL 10 MG TABLET PO PRN (03:30)
[2021-10-09 03:47] LABS: BASOPHILS % (AUTO) 0.2 % (0.0-5.0); HEMATOCRIT 29.8 % (36-48); LYMPHOCYTES % (AUTO) 7.6 % (21.0-51.0); MEAN CORPUSCULAR HGB CONC 33.9 g/dL (32.0-36.0); MEAN CORPUSCULAR VOLUME 94.3 fL (79-99); MONOCYTES % (AUTO) 4.3 % (3.0-13.0); PLATELET COUNT (AUTO) 139 K/uL (130-400); RED BLOOD CELL COUNT(AUTO) 3.16 MIL/uL (4.00-5.50); RED CELL DISTRIBUTION WIDTH 13.6 % (11.0-15.5); WHITE BLOOD COUNT (AUTO) 4.9 K/uL (4.8-10.8)
[2021-10-09 03:54] LABS: HEMOGLOBIN A1C 8.4 % (4.0-6.0)
[2021-10-09 04:07] LABS: CREATININE 6.8 mg/dL (0.5-1.5); POTASSIUM 4.8 mmol/L (3.5-5.1); TOTAL PROTEIN, SERUM 7.1 g/dL (6.0-8.3)
[2021-10-09] MEDS: ALBUTEROL INHALER 90MCG/INH IH SCH ×4 (04:45→18:15)
[2021-10-09] MEDS ORDERED: INSULIN HUMULIN R 100 UNIT/ML 3ML SQ ONE (04:50)
[2021-10-09] MEDS: NITROGLYCERIN 1GM OINT 1 INCH/1GM TD SCH ×2 (05:06→14:06)
[2021-10-09] MEDS: INSULIN HUMULIN R 100 UNIT/ML 3ML SQ SCH ×4 (07:21→22:06)
[2021-10-09] MEDS ORDERED: BENZONATATE 100 MG CAPSULE PO PRN (08:30)
[2021-10-09] MEDS: Vitamin B Complex/Vit C/Folic Acid PO SCH (08:49)
[2021-10-09] MEDS: SEVELAMER HCL 800 MG TABLET PO SCH ×3 (08:49→16:52)
[2021-10-09] MEDS: HYDRALAZINE 25MG TABLET PO SCH ×3 (08:50→22:05)
[2021-10-09] MEDS: ASPIRIN 81MG CHEW TAB PO SCH (08:50)
[2021-10-09] MEDS: CEFTRIAXONE 1G VIAL IVP SCH ×2 (08:51→22:04)
[2021-10-09] MEDS: **HM** VIT D3 2000 UNITS PO SCH (08:51)
[2021-10-09] MEDS: CLONIDINE HCL 0.1 MG TABLET PO SCH ×3 (08:51→22:04)
[2021-10-09] MEDS: DOXYCYCLINE 100MG+NS 250ML IV SCH ×2 (08:51→22:04)
[2021-10-09] MEDS: CALCIUM AC 667MG CAP PO SCH ×3 (08:51→16:52)
[2021-10-09] MEDS ORDERED: SODIUM CHLORIDE 7% INHALATION 4 ML VIAL.NEB IH ONE ×2 (13:13→18:19)
[2021-10-09] MEDS ORDERED: DEXAMETHASONE SOD PHOSPHATE 4 MG/ML 1ML VIAL IV SCH (20:00)
[2021-10-09] MEDS: LOSARTAN 100 MG TABLET PO SCH (22:04)
[2021-10-09] MEDS: ATORVASTATIN 20 MG TABLET PO SCH (22:04)
[2021-10-09] MEDS: INSULIN GLARGINE 100 UNITS/ML 10 ML VIAL SQ SCH (22:08)
[2021-10-10] MEDS: ALBUTEROL INHALER 90MCG/INH IH SCH ×2 (00:30→05:59)
[2021-10-10 03:55] VITALS: BP 132/54
[2021-10-10 04:17] LABS: ALBUMIN 2.8 g/dL (3.5-5.0); POTASSIUM 4.3 mmol/L (3.5-5.1); TOTAL PROTEIN, SERUM 6.9 g/dL (6.0-8.3)
[2021-10-10 04:25] LABS: CREATININE 8.6 mg/dL (0.5-1.5)
[2021-10-10] MEDS: INSULIN HUMULIN R 100 UNIT/ML 3ML SQ SCH ×6 (05:59→22:19)
[2021-10-10 07:00] VITALS: BP 118/60
[2021-10-10] MEDS: **HM** VIT D3 2000 UNITS PO SCH (09:00)
[2021-10-10] MEDS: CEFTRIAXONE 1G VIAL IVP SCH ×2 (10:33→20:43)
[2021-10-10] MEDS: HYDRALAZINE 25MG TABLET PO SCH ×3 (10:33→20:42)
[2021-10-10] MEDS: SEVELAMER HCL 800 MG TABLET PO SCH ×3 (10:33→16:35)
[2021-10-10] MEDS: CLONIDINE HCL 0.1 MG TABLET PO SCH ×3 (10:33→20:43)
[2021-10-10] MEDS: Vitamin B Complex/Vit C/Folic Acid PO SCH (10:34)
[2021-10-10] MEDS: DOXYCYCLINE 100MG+NS 250ML IV SCH ×2 (10:34→23:17)
[2021-10-10] MEDS: ASPIRIN 81MG CHEW TAB PO SCH (10:34)
[2021-10-10] MEDS: CALCIUM AC 667MG CAP PO SCH ×3 (10:35→16:35)
[2021-10-10] MEDS: HEPARIN 5,000 UNIT VIAL SQ SCH ×2 (10:59→22:20)
[2021-10-10 11:00] VITALS: BP 130/67
[2021-10-10] MEDS: INSULIN GLARGINE 100 UNITS/ML 10 ML VIAL SQ SCH (11:00)
[2021-10-10] MEDS: FAMOTIDINE 20MG TAB PO SCH (11:04)
[2021-10-10 15:42] VITALS: BP 131/56
[2021-10-10 16:13] LABS: BASOPHILS % (AUTO) 0.1 % (0.0-5.0); LYMPHOCYTES % (AUTO) 5.8 % (21.0-51.0); MEAN CORPUSCULAR HEMOGLOBIN 32.4 pg (27.0-33.0); MEAN CORPUSCULAR HGB CONC 33.7 g/dL (32.0-36.0); MEAN CORPUSCULAR VOLUME 96.2 fL (79-99); MONOCYTES % (AUTO) 5.3 % (3.0-13.0); NEUTROPHILS % (AUTO) 88.1 % (40.0-77.0); PLATELET COUNT (AUTO) 194 K/uL (130-400); RED BLOOD CELL COUNT(AUTO) 3.12 MIL/uL (4.00-5.50); RED CELL DISTRIBUTION WIDTH 13.9 % (11.0-15.5); WHITE BLOOD COUNT (AUTO) 9.7 K/uL (4.8-10.8)
[2021-10-10] MEDS ORDERED: GUAIFENESIN SUGAR-FREE 100 MG/5 ML UDCUP PO PRN (19:00)
[2021-10-10 19:16] LABS: POTASSIUM 4.3 mmol/L (3.5-5.1)
[2021-10-10 20:00] VITALS: BP 140/48
[2021-10-10] MEDS ORDERED: INSULIN HUMULIN R 100 UNIT/ML 3ML SQ ONE (20:00)
[2021-10-10] MEDS: ATORVASTATIN 20 MG TABLET PO SCH (20:43)
[2021-10-10] MEDS ORDERED: HEPARIN 25,000 UNITS/250ML D5W 250 ML IV SCH (21:00)
[2021-10-10] MEDS: LOSARTAN 100 MG TABLET PO SCH (22:17)
[2021-10-11] VITALS (21 sets, daily range): BP systolic 103–159; BP diastolic 46–86
[2021-10-11] MEDS ORDERED: INSULIN HUMULIN R 100 UNIT/ML 3ML SQ SCH
[2021-10-11] MEDS: ALBUTEROL INHALER 90MCG/INH IH SCH ×2 (00:30→06:30)
[2021-10-11] MEDS ORDERED: ONDANSETRON 4MG INJ IVP PRN (04:00)
[2021-10-11 04:07] LABS: BASOPHILS % (AUTO) 0.1 % (0.0-5.0); HEMATOCRIT 28.5 % (36-48); LYMPHOCYTES % (AUTO) 5.5 % (21.0-51.0); MEAN CORPUSCULAR HEMOGLOBIN 31.9 pg (27.0-33.0); MEAN CORPUSCULAR HGB CONC 33.7 g/dL (32.0-36.0); MEAN CORPUSCULAR VOLUME 94.7 fL (79-99); MONOCYTES % (AUTO) 4.7 % (3.0-13.0); NEUTROPHILS % (AUTO) 88.9 % (40.0-77.0); PLATELET COUNT (AUTO) 194 K/uL (130-400); RED BLOOD CELL COUNT(AUTO) 3.01 MIL/uL (4.00-5.50); RED CELL DISTRIBUTION WIDTH 13.9 % (11.0-15.5); WHITE BLOOD COUNT (AUTO) 12.6 K/uL (4.8-10.8)
[2021-10-11 04:33] LABS: ALBUMIN 2.6 g/dL (3.5-5.0); MAGNESIUM 2.1 mg/dL (1.80-2.40); PHOSPHORUS 6.2 mg/dL (2.5-4.9); POTASSIUM 3.8 mmol/L (3.5-5.1); TOTAL PROTEIN, SERUM 6.2 g/dL (6.0-8.3)
[2021-10-11 04:37] LABS: CREATININE 10.3 mg/dL (0.5-1.5)
[2021-10-11] MEDS ORDERED: IOHEXOL 350 MG/ML 100ML INFUS..BTL IV ONE (05:17)
[2021-10-11] MEDS: INSULIN HUMULIN R 100 UNIT/ML 3ML SQ SCH ×4 (06:39→17:00)
[2021-10-11] MEDS: SEVELAMER HCL 800 MG TABLET PO SCH ×3 (08:00→16:43)
[2021-10-11] MEDS: CALCIUM AC 667MG CAP PO SCH ×3 (08:00→16:44)
[2021-10-11] MEDS: **HM** VIT D3 2000 UNITS PO SCH (09:00)
[2021-10-11] MEDS: INSULIN GLARGINE 100 UNITS/ML 10 ML VIAL SQ SCH (09:00)
[2021-10-11] MEDS: Vitamin B Complex/Vit C/Folic Acid PO SCH (09:00)
[2021-10-11] MEDS: ASPIRIN 81MG CHEW TAB PO SCH (09:00)
[2021-10-11] MEDS: HYDRALAZINE 25MG TABLET PO SCH ×2 (09:00→20:42)
[2021-10-11] MEDS: CLONIDINE HCL 0.1 MG TABLET PO SCH ×3 (09:00→20:42)
[2021-10-11] MEDS: DOXYCYCLINE 100MG+NS 250ML IV SCH ×2 (09:00→16:42)
[2021-10-11] MEDS: CEFTRIAXONE 1G VIAL IVP SCH ×2 (09:30→16:43)
[2021-10-11] MEDS: HEPARIN 5,000 UNIT VIAL SQ SCH ×2 (10:00→21:27)
[2021-10-11] MEDS ORDERED: 0.9% NACL 250ML 250 ML ONE (16:39)
[2021-10-11] MEDS: LOSARTAN 100 MG TABLET PO SCH (20:43)
[2021-10-11] MEDS: ATORVASTATIN 20 MG TABLET PO SCH (21:02)
[2021-10-11] MEDS: DEXAMETHASONE SOD PHOSPHATE 4 MG/ML 1ML VIAL IV SCH (21:02)
[2021-10-12] MEDS: ALBUTEROL INHALER 90MCG/INH IH SCH ×2 (00:30→06:30)
[2021-10-12 04:00] VITALS: BP 139/48
[2021-10-12 05:16] LABS: CREATININE 7.1 mg/dL (0.5-1.5); POTASSIUM 5.6 mmol/L (3.5-5.1)
[2021-10-12 05:27] LABS: BASOPHILS % (AUTO) 0.2 % (0.0-5.0); HEMATOCRIT 31.7 % (36-48); LYMPHOCYTES % (AUTO) 3.8 % (21.0-51.0); MEAN CORPUSCULAR HEMOGLOBIN 31.8 pg (27.0-33.0); MEAN CORPUSCULAR HGB CONC 32.8 g/dL (32.0-36.0); MEAN CORPUSCULAR VOLUME 96.9 fL (79-99); MONOCYTES % (AUTO) 2.5 % (3.0-13.0); NEUTROPHILS % (AUTO) 92.8 % (40.0-77.0); PLATELET COUNT (AUTO) 175 K/uL (130-400); RED BLOOD CELL COUNT(AUTO) 3.27 MIL/uL (4.00-5.50); WHITE BLOOD COUNT (AUTO) 5.6 K/uL (4.8-10.8)
[2021-10-12] MEDS: INSULIN HUMULIN R 100 UNIT/ML 3ML SQ SCH ×7 (06:16→18:05)
[2021-10-12 07:30] VITALS: BP 133/56
[2021-10-12] MEDS: INSULIN GLARGINE 100 UNITS/ML 10 ML VIAL SQ SCH (09:00)
[2021-10-12] MEDS: **HM** VIT D3 2000 UNITS PO SCH (09:00)
[2021-10-12] MEDS: FAMOTIDINE 20MG TAB PO SCH (09:00)
[2021-10-12] MEDS: CEFTRIAXONE 1G VIAL IVP SCH ×2 (10:44→21:56)
[2021-10-12] MEDS: DOXYCYCLINE 100MG+NS 250ML IV SCH ×2 (10:45→21:56)
[2021-10-12] MEDS: CLONIDINE HCL 0.1 MG TABLET PO SCH ×3 (10:51→20:37)
[2021-10-12] MEDS: ASPIRIN 81MG CHEW TAB PO SCH (10:52)
[2021-10-12 11:00] VITALS: BP 129/56
[2021-10-12] MEDS: HYDRALAZINE 25MG TABLET PO SCH ×3 (11:02→20:37)
[2021-10-12] MEDS: HEPARIN 5,000 UNIT VIAL SQ SCH ×2 (11:12→22:19)
[2021-10-12] MEDS: CALCIUM AC 667MG CAP PO SCH ×3 (12:03→17:46)
[2021-10-12] MEDS: SEVELAMER HCL 800 MG TABLET PO SCH ×2 (12:03→17:46)
[2021-10-12 16:00] VITALS: BP 125/60
[2021-10-12] MEDS: Vitamin B Complex/Vit C/Folic Acid PO SCH (17:54)
[2021-10-12 20:00] VITALS: BP 133/54
[2021-10-12] MEDS: LOSARTAN 100 MG TABLET PO SCH (20:37)
[2021-10-12] MEDS: DEXAMETHASONE SOD PHOSPHATE 4 MG/ML 1ML VIAL IV SCH (21:56)
[2021-10-12] MEDS: ATORVASTATIN 20 MG TABLET PO SCH (21:56)
[2021-10-13] VITALS (19 sets, daily range): BP systolic 114–190; BP diastolic 41–86
[2021-10-13] MEDS: INSULIN HUMULIN R 100 UNIT/ML 3ML SQ SCH ×5 (01:44→12:00)
[2021-10-13 04:04] LABS: HEMATOCRIT 26.7 % (36-48); MEAN CORPUSCULAR HEMOGLOBIN 31.8 pg (27.0-33.0); MEAN CORPUSCULAR HGB CONC 33.3 g/dL (32.0-36.0); MEAN CORPUSCULAR VOLUME 95.4 fL (79-99); PLATELET COUNT (AUTO) 142 K/uL (130-400); RED CELL DISTRIBUTION WIDTH 13.5 % (11.0-15.5); WHITE BLOOD COUNT (AUTO) 5.6 K/uL (4.8-10.8)
[2021-10-13 04:16] LABS: POTASSIUM 5.3 mmol/L (3.5-5.1)
[2021-10-13 04:27] LABS: CREATININE 9.1 mg/dL (0.5-1.5)
[2021-10-13 04:37] LABS: LYMPHOCYTES % (MANUAL) 5 % (22-44); SEGMENTED NEUTROPHILS % 95 % (40-70)
[2021-10-13 04:39] LABS: MAN.DIFF COMMENT-IMPRESSION MANUAL DIF; PLATELET MORPHOLOGY COMMENT ADEQUATE
[2021-10-13] MEDS: CALCIUM AC 667MG CAP PO SCH ×3 (08:00→16:11)
[2021-10-13] MEDS: CLONIDINE HCL 0.1 MG TABLET PO SCH ×2 (09:00→14:03)
[2021-10-13] MEDS: **HM** VIT D3 2000 UNITS PO SCH (09:00)
[2021-10-13] MEDS: HYDRALAZINE 25MG TABLET PO SCH ×2 (09:00→14:04)
[2021-10-13] MEDS: HEPARIN 5,000 UNIT VIAL SQ SCH (10:00)
[2021-10-13] MEDS: DOXYCYCLINE 100MG+NS 250ML IV SCH (10:38)
[2021-10-13] MEDS: SEVELAMER HCL 800 MG TABLET PO SCH ×3 (10:38→16:11)
[2021-10-13] MEDS: ASPIRIN 81MG CHEW TAB PO SCH (10:39)
[2021-10-13] MEDS: Vitamin B Complex/Vit C/Folic Acid PO SCH (10:40)
[2021-10-13] MEDS: CEFTRIAXONE 1G VIAL IVP SCH (10:40)
[2021-10-13] MEDS: INSULIN GLARGINE 100 UNITS/ML 10 ML VIAL SQ SCH (12:38)
[2021-10-13] MEDS ORDERED: INSU100V IV (15:14)
[2021-10-13] MEDS ORDERED: DEXA6TAB PO (15:14)
[2021-10-13] MEDS ORDERED: DOXY100T2 PO (15:14)
[2021-10-13] MEDS ORDERED: BENZ-70 PO (15:14)
== END 2021-10-13 17:20 | disposition home or self-care (01) | DRG 177 ==
LOC: EDH 19:28 → EDHIP 21:17 → 2CH 23:42 → 4CH 10-09 20:27
PROVIDERS: ADMIT Hospitalist; ATTEND Hospitalist
PROC: 5A1D70Z Performance of Urinary Filtration, Intermittent, Less than 6 Hours Per Day (ICD-10-PCS; principal; 2021-10-11)
PROC: 5A1D70Z Performance of Urinary Filtration, Intermittent, Less than 6 Hours Per Day (ICD-10-PCS; 2021-10-13)
DX: U07.1 COVID-19 (principal); I21.A1 Myocardial infarction type 2; J10.08 Influenza due to other identified influenza virus with other specified pneumonia; J12.82 Pneumonia due to coronavirus disease 2019; N18.6 End stage renal disease; J96.01 Acute respiratory failure with hypoxia; I12.0 Hypertensive chronic kidney disease with stage 5 chronic kidney disease or end stage renal disease; I42.9 Cardiomyopathy, unspecified; J44.0 Chronic obstructive pulmonary disease with (acute) lower respiratory infection; D64.9 Anemia, unspecified; E11.22 Type 2 diabetes mellitus with diabetic chronic kidney disease; Z53.20 Procedure and treatment not carried out because of patient's decision for unspecified reasons; E11.65 Type 2 diabetes mellitus with hyperglycemia; E78.5 Hyperlipidemia, unspecified; Z99.2 Dependence on renal dialysis; Z91.19 Patient's noncompliance with other medical treatment and regimen; Z91.15 Patient's noncompliance with renal dialysis; Z83.3 Family history of diabetes mellitus; Z82.49 Family history of ischemic heart disease and other diseases of the circulatory system; Z79.4 Long term (current) use of insulin; Z28.310 Unvaccinated for COVID-19
CPT/HCPCS: 36415; 36600; 71045; 71275; 80048; 80053; 82010; 82306; 82803; 82948; 83036; 83605; 83615; 83735; 84100; 84145; 84484; 85025; 85378; 86140; 86704; 86706; 87040; 87635; 87804; 90935; 93005; 93970; 94640; 94760; 99291; C9803; G0378; J0696; J1100; J1644; J1815; J2405; J2920; J3490; J7030; J7050; Q9967

== ENCOUNTER 2022-06-24 03:50 | Observation (INO) | payer MEDICARE ==
[~2022-06-24] VITALS: Ht 157.5 cm; Wt 68.9 kg
[2022-06-24] VITALS (17 sets, daily range): BP systolic 152–206; BP diastolic 66–90
[~2022-06-24 03:50] MED LIST changes: -AMLO-257 PO; +BENZ-226 PO; +DEXA6TAB PO; +DOXY100T2 PO; -INSU100I3 SQ; +INSU100V IV
[2022-06-24 04:16] LABS: BASOPHILS % (AUTO) 0.7 % (0.0-5.0); EOSINOPHILS % (AUTO) 2.8 % (0.0-8.0); HEMATOCRIT 33.6 % (36-48); MEAN CORPUSCULAR HGB CONC 32.1 g/dL (32.0-36.0); MEAN CORPUSCULAR VOLUME 99.4 fL (79-99); MONOCYTES % (AUTO) 13.1 % (3.0-13.0); NEUTROPHILS % (AUTO) 73.9 % (40.0-77.0); PLATELET COUNT (AUTO) 135 K/uL (130-400); RED BLOOD CELL COUNT(AUTO) 3.38 MIL/uL (4.00-5.50); RED CELL DISTRIBUTION WIDTH 15.3 % (11.0-15.5); WHITE BLOOD COUNT (AUTO) 5.8 K/uL (4.8-10.8)
[2022-06-24 04:26] LABS: CREATININE 7.7 mg/dL (0.5-1.5); POTASSIUM 5.5 mmol/L (3.5-5.1)
[2022-06-24 04:29] LABS: INFLUENZA TYPE A NEGATIVE FOR TYPE A (NEG); INFLUENZA TYPE B NEGATIVE FOR TYPE B (NEG)
[2022-06-24 04:34] LABS: ALBUMIN 3.8 g/dL (3.5-5.0); TOTAL PROTEIN, SERUM 7.4 g/dL (6.0-8.3)
[2022-06-24] MEDS ORDERED: SOLU-MEDROL 125MG VIAL IVP ONE (05:00)
[2022-06-24] MEDS ORDERED: IPRATROPIUM/ALBUTEROL SULFATE 3 ML SOLUTION IH ONE (05:00)
[2022-06-24] MEDS ORDERED: FUROSEMIDE 40MG VIAL IV ONE (06:00)
[2022-06-24] MEDS ORDERED: NA ZIRCON CYCLOSIL(LOKELMA 10GM) PO ONE (06:00)
[2022-06-24] MEDS ORDERED: GLUCAGON 1MG KIT 1 MG ML IM PRN (06:30)
[2022-06-24] MEDS ORDERED: NA ZIRCON CYCLOSIL(LOKELMA 10GM) PO NR (06:30)
[2022-06-24] MEDS ORDERED: INSULIN HUMULIN R 100 UNIT/ML 3ML IV ONE (06:30)
[2022-06-24] MEDS ORDERED: ACETAMINOPHEN 325 MG TAB PO PRN ×2 (06:30)
[2022-06-24] MEDS ORDERED: SODIUM BICARB 8.4% 50ML SYRINGE IVP ONE (06:30)
[2022-06-24] MEDS ORDERED: CALCIUM GLUC 1GM 1 GM in 0.9%NACL 100ML 100 ML IV ONE (06:30)
[2022-06-24] MEDS ORDERED: DIPHENHYDRAMINE HCL 25 MG CAPSULE PO PRN (06:30)
[2022-06-24] MEDS ORDERED: DEXTROSE 50%-WATER 50 ML DISP.SYRIN IV PRN (06:30)
[2022-06-24] MEDS ORDERED: ALBUTEROL 0.083% 2.5 MG/3 ML INH IH SCH (06:30)
[2022-06-24] MEDS ORDERED: GUAIFENESIN-DM 200/20 MG 10 ML PO PRN (06:30)
[2022-06-24] MEDS ORDERED: DEXTROSE 50%-WATER 25 GM/50 ML VIAL IV ONE (06:30)
[2022-06-24] MEDS ORDERED: DiphenhydrAMINE HCL 50 MG/ML VIAL IV PRN (06:30)
[2022-06-24] MEDS ORDERED: ONDANSETRON 4MG INJ IV PRN (06:30)
[2022-06-24] MEDS ORDERED: NITROGLYCERIN 0.4 MG SL TAB SL PRN (06:30)
[2022-06-24] MEDS ORDERED: MAG/ALUM/SIMETH 30 ML UDCUP PO PRN (06:30)
[2022-06-24] MEDS ORDERED: LACTULOSE 20 GM/30 ML UDCUP PO PRN (06:30)
[2022-06-24] MEDS ORDERED: HYDRALAZINE 20MG/ML VIAL IV PRN (07:00)
[2022-06-24] MEDS ORDERED: 0.9%NACL 50ML IV SCH (07:00)
[2022-06-24] MEDS ORDERED: BENZONATATE 100 MG CAPSULE PO PRN (07:00)
[2022-06-24] MEDS ORDERED: SODIUM BICARB 50MEQ 50ML VIAL 50 ML ONE (07:16)
[2022-06-24] MEDS ORDERED: CALCIUM GLUC 1GM/10ML VIAL ONE (07:18)
[2022-06-24] MEDS: INSULIN HUMULIN R 100 UNIT/ML 3ML SQ SCH ×3 (07:30→17:33)
[2022-06-24] MEDS: ZOSYN 3.375GM +NS 50ML IVPB SCH ×3 (07:45→20:44)
[2022-06-24] MEDS: FAMOTIDINE 20MG VIAL IV SCH ×2 (09:00→20:45)
[2022-06-24] MEDS: HEPARIN 5,000 UNIT VIAL SQ SCH ×3 (09:14→20:44)
[2022-06-24] MEDS: FAMOTIDINE 20MG TAB PO SCH ×2 (09:14→20:45)
[2022-06-24 09:33] LABS: HEMOGLOBIN A1C 6.3 % (4.0-6.0)
[2022-06-24 09:36] LABS: % IRON SATURATION 6.2 % (22-44)
[2022-06-24 09:40] LABS: THYROID STIMULATING HORMONE 1.34 uIU/mL (0.36-3.74)
[2022-06-24] MEDS ORDERED: INSULIN GLARGINE 100 UNITS/ML 10 ML VIAL SQ SCH (21:00)
[2022-06-24 22:01] LABS: HEPATITIS B SURFACE ANTIGEN Non-Reactive (Nonreactive)
[2022-06-24] MEDS ORDERED: LORA10TA7 PO (22:18)
[2022-06-24] MEDS ORDERED: BENZ-226 PO (22:18)
[2022-06-24] MEDS ORDERED: CLON0.1T PO (22:20)
[2022-06-24] MEDS ORDERED: CYCL-309 PO (22:20)
[2022-06-24] MEDS ORDERED: CINA30TA5 PO (22:21)
[2022-06-25] VITALS: BP 162/70
[2022-06-25 04:00] VITALS: BP 150/56
[2022-06-25] MEDS: ZOSYN 3.375GM +NS 50ML IVPB SCH ×2 (05:09→13:51)
[2022-06-25 06:03] LABS: HEMATOCRIT 31.4 % (36-48); MEAN CORPUSCULAR HEMOGLOBIN 31.1 pg (27.0-33.0); MEAN CORPUSCULAR HGB CONC 31.8 g/dL (32.0-36.0); MEAN CORPUSCULAR VOLUME 97.5 fL (79-99); PLATELET COUNT (AUTO) 173 K/uL (130-400); RED BLOOD CELL COUNT(AUTO) 3.22 MIL/uL (4.00-5.50); RED CELL DISTRIBUTION WIDTH 15.1 % (11.0-15.5); WHITE BLOOD COUNT (AUTO) 7.1 K/uL (4.8-10.8)
[2022-06-25] MEDS: INSULIN HUMULIN R 100 UNIT/ML 3ML SQ SCH ×4 (06:13→16:44)
[2022-06-25 06:24] LABS: BAND NEUTROPHILS % (MANUAL) 2 % (0-2); EOSINOPHILS % (MANUAL) 2 % (1-6); LYMPHOCYTES % (MANUAL) 18 % (22-44); MAN.DIFF COMMENT-IMPRESSION MANUAL DIFFERENTIAL; MONOCYTES % (MANUAL) 6 % (2-9); SEGMENTED NEUTROPHILS % 72 % (40-70)
[2022-06-25 06:25] LABS: PLATELET MORPHOLOGY COMMENT N
[2022-06-25 06:32] LABS: ALBUMIN 3.3 g/dL (3.5-5.0); MAGNESIUM 2.1 mg/dL (1.80-2.40); PHOSPHORUS 4.3 mg/dL (2.5-4.9); TOTAL PROTEIN, SERUM 6.6 g/dL (6.0-8.3)
[2022-06-25 08:00] VITALS: BP 169/57
[2022-06-25] MEDS: FAMOTIDINE 20MG VIAL IV SCH (08:40)
[2022-06-25] MEDS: FAMOTIDINE 20MG TAB PO SCH (08:41)
[2022-06-25] MEDS: HEPARIN 5,000 UNIT VIAL SQ SCH ×2 (08:46→13:55)
[2022-06-25] MEDS ORDERED: AMLODIPINE 5 MG TAB PO SCH (09:00)
[2022-06-25] MEDS ORDERED: LOSARTAN 50 MG TABLET PO SCH (09:00)
[2022-06-25 12:00] VITALS: BP 123/49
[2022-06-25 16:00] VITALS: BP 140/58
== END 2022-06-25 16:00 | disposition home or self-care (01) ==
LOC: EDH 03:50 → INTOOBSV 06:25 → EDHIP 06:25 → 3DH 11:00
PROVIDERS: ADMIT Internal Medicine; ATTEND Internal Medicine
DX: J96.01 Acute respiratory failure with hypoxia (principal); Z20.822 Contact with and (suspected) exposure to COVID-19; E87.70 Fluid overload, unspecified; I13.2 Hypertensive heart and chronic kidney disease with heart failure and with stage 5 chronic kidney disease, or end stage renal disease; I50.31 Acute diastolic (congestive) heart failure; N18.6 End stage renal disease; D63.1 Anemia in chronic kidney disease; E11.22 Type 2 diabetes mellitus with diabetic chronic kidney disease; I25.10 Atherosclerotic heart disease of native coronary artery without angina pectoris; I31.39 Other pericardial effusion (noninflammatory); E11.21 Type 2 diabetes mellitus with diabetic nephropathy; I34.0 Nonrheumatic mitral (valve) insufficiency; J18.9 Pneumonia, unspecified organism; E78.00 Pure hypercholesterolemia, unspecified; E87.5 Hyperkalemia; Z91.119 Patient's noncompliance with dietary regimen due to unspecified reason; Z91.199 Patient's noncompliance with other medical treatment and regimen due to unspecified reason; Z99.2 Dependence on renal dialysis; Z79.4 Long term (current) use of insulin; Z79.82 Long term (current) use of aspirin; Z98.891 History of uterine scar from previous surgery; Z79.899 Other long term (current) drug therapy; Z98.890 Other specified postprocedural states
CPT/HCPCS: 99291; 93306; 96366 ×4; 96375; 96365; 71045; 96367; 87635; 96372 ×2; 83036; 84443; 83540; 83550; 84484; 80053 ×2; 83880; 85025 ×2; 87040 ×2; 87804 ×2; 82948 ×8; 83605 ×2; 86706; 87340; 86704; 36415 ×2; 93356; 93005; 84145; 83735; 84100; 94640 ×2; J1815 ×2; C9803; J2930; J3490; J7070; J0610 ×2; J2543 ×5; J1644 ×5; J1940; G0378; 90935; 94002

== ENCOUNTER 2022-07-18 19:02 | Emergency (ER) | payer MEDICARE ==
[~2022-07-18] VITALS: Ht 154.9 cm; Wt 68.0 kg
[~2022-07-18 19:02] MED LIST changes: -ASPI-556 PO; -CALC667C10 PO; -CHOL200013 PO; +CINA30TA5 PO; +CYCL-309 PO; -DEXA6TAB PO; -DOXY100T2 PO; -Folic Acid/Vitamin B Comp W-C PO; -INSU100V IV; +LORA10TA7 PO; -LOSA100T58 PO
[2022-07-18 19:46] LABS: BASOPHILS % (AUTO) 1.2 % (0.0-5.0); EOSINOPHILS % (AUTO) 4.2 % (0.0-8.0); HEMATOCRIT 37.9 % (36-48); LYMPHOCYTES % (AUTO) 10.8 % (21.0-51.0); MEAN CORPUSCULAR HEMOGLOBIN 31.2 pg (27.0-33.0); MEAN CORPUSCULAR HGB CONC 32.7 g/dL (32.0-36.0); MEAN CORPUSCULAR VOLUME 95.2 fL (79-99); MONOCYTES % (AUTO) 9.3 % (3.0-13.0); PLATELET COUNT (AUTO) 121 K/uL (130-400); RED BLOOD CELL COUNT(AUTO) 3.98 MIL/uL (4.00-5.50); RED CELL DISTRIBUTION WIDTH 15.9 % (11.0-15.5); WHITE BLOOD COUNT (AUTO) 4.1 K/uL (4.8-10.8)
[2022-07-18] MEDS ORDERED: HYDRALAZINE 20MG/ML VIAL IV ONE (20:00)
[2022-07-18 20:05] LABS: CREATININE 5.4 mg/dL (0.5-1.5); POTASSIUM 4.6 mmol/L (3.5-5.1)
[2022-07-18 20:07] LABS: TOTAL PROTEIN, SERUM 7.2 g/dL (6.0-8.3)
[2022-07-19 02:31] VITALS: BP 159/85
== END 2022-07-19 01:36 | disposition home or self-care (01) ==
LOC: EDH 19:02
DX: I10 Essential (primary) hypertension (principal); I16.0 Hypertensive urgency; E11.22 Type 2 diabetes mellitus with diabetic chronic kidney disease; I12.0 Hypertensive chronic kidney disease with stage 5 chronic kidney disease or end stage renal disease; N18.6 End stage renal disease; Z79.899 Other long term (current) drug therapy; Z98.890 Other specified postprocedural states
CPT/HCPCS: 99285; 96374; 71045; 84484; 80053; 83880; 85025; 85730; 36415; 93005 ×2; J0360

== ENCOUNTER 2022-10-09 11:12 | Observation (INO) | payer MEDICARE ==
[2022-10-09] VITALS (16 sets, daily range): BP systolic 96–189; BP diastolic 54–86; PULSE 71–89; RESP 16–20; TEMP 99.1–99.4; O2SAT 95
[~2022-10-09] VITALS: Ht 157.5 cm; Wt 72.8 kg
[2022-10-09] MEDS ORDERED: MORPHINE 4 MG SYG IVP ONE (12:00)
[2022-10-09] MEDS ORDERED: ONDANSETRON 4MG INJ IVP ONE ×3 (12:00→15:30)
[2022-10-09] MEDS ORDERED: MORPHINE 4 MG SYG IM ONE (12:00)
[2022-10-09 12:11] LABS: BASOPHILS # (AUTO) 0.06 K/uL (0.00-0.20); BASOPHILS % (AUTO) 0.8 % (0.0-5.0); EOSINOPHILS # (AUTO) 0.13 K/uL (0.00-0.70); EOSINOPHILS % (AUTO) 1.8 % (0.0-8.0); HEMATOCRIT 38.7 % (36-48); IMMATURE GRANULOCYTE ABSOLUTE 0.04 K/uL (0-1); LYMPHOCYTES # (AUTO) 0.9 K/uL (1.0-4.8); MEAN CORPUSCULAR HEMOGLOBIN 32.1 pg (27.0-33.0); MEAN CORPUSCULAR HGB CONC 32.8 g/dL (32.0-36.0); MEAN CORPUSCULAR VOLUME 97.7 fL (79-99); MONOCYTES # (AUTO) 0.8 K/uL (0.1-1.0); MONOCYTES % (AUTO) 11.4 % (3.0-13.0); NEUTROPHILS # (AUTO) 5.3 K/uL (1.8-7.7); NEUTROPHILS % (AUTO) 73.4 % (40.0-77.0); PLATELET COUNT (AUTO) 147 K/uL (130-400); RED BLOOD CELL COUNT(AUTO) 3.96 MIL/uL (4.00-5.50); RED CELL DISTRIBUTION WIDTH 13.5 % (11.0-15.5); WHITE BLOOD COUNT (AUTO) 7.3 K/uL (4.8-10.8)
[2022-10-09 12:25] LABS: ALBUMIN 3.8 g/dL (3.5-5.0); BILIRUBIN,TOTAL 0.6 mg/dL (0.2-1.0); TOTAL PROTEIN, SERUM 7.2 g/dL (6.0-8.3)
[2022-10-09] MEDS ORDERED: HYDRALAZINE 20MG/ML VIAL IV ONE ×2 (12:30→13:00)
[2022-10-09 12:32] LABS: CREATININE 9.2 mg/dL (0.5-1.5); POTASSIUM 7.6 mmol/L (3.5-5.1)
[2022-10-09] MEDS ORDERED: CALCIUM GLUC 1GM/10ML VIAL IV STA (12:36)
[2022-10-09] MEDS ORDERED: SODIUM BICARB 50MEQ 50ML VIAL IV STA (12:36)
[2022-10-09] MEDS ORDERED: ALBUTEROL 0.083% 2.5 MG/3 ML INH IH ONE ×2 (12:44→13:00)
[2022-10-09] MEDS ORDERED: INSULIN HUMULIN R 100 UNIT/ML 3ML SQ ONE (13:00)
[2022-10-09] MEDS ORDERED: INSULIN HUMULIN R 100 UNIT/ML 3ML IV ONE (13:00)
[2022-10-09] MEDS ORDERED: DEXTROSE 50%-WATER 50 ML DISP.SYRIN IV ONE (13:00)
[2022-10-09] MEDS ORDERED: KAYEXALATE 15GM/60ML PO ONE ×2 (13:00→16:00)
[2022-10-09] MEDS ORDERED: ACETAMINOPHEN 650 MG SUPPOSITORY RC PRN (16:00)
[2022-10-09] MEDS ORDERED: CLONIDINE HCL 0.1 MG TABLET PO PRN ×2 (16:00)
[2022-10-09] MEDS ORDERED: NA ZIRCON CYCLOSIL(LOKELMA 10GM) PO ONE (16:00)
[2022-10-09] MEDS ORDERED: ONDANSETRON 4MG INJ IVP PRN (16:00)
[2022-10-09] MEDS ORDERED: ACETAMINOPHEN 325 MG TAB PO PRN (16:00)
[2022-10-09] MEDS: NITROGLYCERIN 1GM OINT 1 INCH/1GM TD SCH (16:11)
[2022-10-09] MEDS: INSULIN HUMULIN R 100 UNIT/ML 3ML SQ SCH ×2 (16:27→21:00)
[2022-10-09] MEDS: SEVELAMER HCL 800 MG TABLET PO SCH (17:00)
[2022-10-09] MEDS ORDERED: IOHEXOL 350 MG/ML 100ML INFUS..BTL IV ONE (17:36)
[2022-10-09 17:49] LABS: SARS-CoV-2, RNA, NAAT NEGATIVE SARS CoV-2 (NEGATIVE)
[2022-10-09 17:52] LABS: INFLUENZA TYPE A Negative For Type A (NEGATIVE); INFLUENZA TYPE B Negative For Type B (NEGATIVE)
[2022-10-09] MEDS ORDERED: SIMVASTATIN 20 MG TABLET PO SCH (21:00)
[2022-10-09] MEDS ORDERED: NON-FORMULARY MEDICATION 1 EACH (Hydralazine HCl 100 MG) PO SCH (21:00)
[2022-10-09] MEDS: ATORVASTATIN 20 MG TABLET PO SCH (22:55)
[2022-10-10] VITALS (18 sets, daily range): BP systolic 106–148; BP diastolic 61–86; PULSE 71–83; RESP 18; TEMP 98.1–99; O2SAT 95–96
[2022-10-10] MEDS ORDERED: HYDRALAZINE 20MG/ML VIAL ONE (04:43)
[2022-10-10] MEDS ORDERED: ASPIRIN 81MG CHEW TAB PO SCH (09:00)
[2022-10-10] MEDS ORDERED: FAMOTIDINE 20MG TAB PO SCH (09:00)
[2022-10-10] MEDS ORDERED: METOPROLOL SUCCINATE 50 MG TAB.SR.24H PO SCH (09:00)
[2022-10-10] MEDS: CLONIDINE HCL 0.1 MG TABLET PO SCH ×3 (09:00→20:17)
[2022-10-10] MEDS ORDERED: LORATADINE 10 MG TABLET PO SCH (09:00)
[2022-10-10 10:27] LABS: CREATININE 7.6 mg/dL (0.5-1.5); MAGNESIUM 2.1 mg/dL (1.80-2.40); PHOSPHORUS 5.3 mg/dL (2.5-4.9); POTASSIUM 5.1 mmol/L (3.5-5.1)
[2022-10-10] MEDS: NITROGLYCERIN 1GM OINT 1 INCH/1GM TD SCH ×3 (11:28→16:00)
[2022-10-10] MEDS: HYDRALAZINE 25MG TABLET PO SCH ×4 (11:28→20:16)
[2022-10-10] MEDS: INSULIN HUMULIN R 100 UNIT/ML 3ML SQ SCH ×4 (11:29→20:11)
[2022-10-10] MEDS: MINOXIDIL 2.5 MG TAB PO SCH ×3 (11:30→20:17)
[2022-10-10] MEDS: SEVELAMER HCL 800 MG TABLET PO SCH ×3 (11:30→18:01)
[2022-10-10] MEDS: HEPARIN 5,000 UNIT VIAL SQ SCH ×2 (12:00→20:23)
[2022-10-10 14:39] LABS: BASOPHILS # (AUTO) 0.07 K/uL (0.00-0.20); BASOPHILS % (AUTO) 0.6 % (0.0-5.0); HEMATOCRIT 38.8 % (36-48); IMMATURE GRANULOCYTE ABSOLUTE 0.06 K/uL (0-1); LYMPHOCYTES # (AUTO) 0.7 K/uL (1.0-4.8); MEAN CORPUSCULAR HEMOGLOBIN 32.5 pg (27.0-33.0); MEAN CORPUSCULAR HGB CONC 32.2 g/dL (32.0-36.0); MEAN CORPUSCULAR VOLUME 100.8 fL (79-99); MONOCYTES # (AUTO) 1.2 K/uL (0.1-1.0); MONOCYTES % (AUTO) 9.8 % (3.0-13.0); NEUTROPHILS # (AUTO) 10.1 K/uL (1.8-7.7); NEUTROPHILS % (AUTO) 83.1 % (40.0-77.0); PLATELET COUNT (AUTO) 134 K/uL (130-400); RED BLOOD CELL COUNT(AUTO) 3.85 MIL/uL (4.00-5.50); RED CELL DISTRIBUTION WIDTH 13.8 % (11.0-15.5); WHITE BLOOD COUNT (AUTO) 12.2 K/uL (4.8-10.8)
[2022-10-10] MEDS ORDERED: METO100T7 PO (14:46)
[2022-10-10 16:51] LABS: % IRON SATURATION 8.2 % (22-44)
[2022-10-10] MEDS: ATORVASTATIN 20 MG TABLET PO SCH (20:17)
[2022-10-12] MEDS ORDERED: METO-391 PO (02:55)
[2022-10-12] MEDS ORDERED: CINA60TA4 PO (02:55)
[2022-10-12] MEDS ORDERED: LOSA100T59 PO (02:55)
[2022-10-12] MEDS ORDERED: INSU100I3 SQ (02:55)
[2022-10-12] MEDS ORDERED: AMLO-257 PO (02:55)
== END 2022-10-10 20:53 | disposition home or self-care (01) ==
LOC: EDH 11:12 → INTOOBSV 15:52 → UNDOADMOB 15:52 → EDHIP 15:52 → 2AH 17:20 → UNDODISOB 10-10 20:53
PROVIDERS: ADMIT Internal Medicine Critical Care Medicine; ATTEND Internal Medicine Critical Care Medicine
DX: I13.2 Hypertensive heart and chronic kidney disease with heart failure and with stage 5 chronic kidney disease, or end stage renal disease (principal); Z20.822 Contact with and (suspected) exposure to COVID-19; E11.22 Type 2 diabetes mellitus with diabetic chronic kidney disease; I50.31 Acute diastolic (congestive) heart failure; N18.6 End stage renal disease; D63.1 Anemia in chronic kidney disease; I16.1 Hypertensive emergency; J96.01 Acute respiratory failure with hypoxia; E11.51 Type 2 diabetes mellitus with diabetic peripheral angiopathy without gangrene; E87.5 Hyperkalemia; E87.70 Fluid overload, unspecified; E78.5 Hyperlipidemia, unspecified; J98.11 Atelectasis; E11.65 Type 2 diabetes mellitus with hyperglycemia; E87.8 Other disorders of electrolyte and fluid balance, not elsewhere classified; E87.1 Hypo-osmolality and hyponatremia; I25.10 Atherosclerotic heart disease of native coronary artery without angina pectoris; I25.2 Old myocardial infarction; Z99.2 Dependence on renal dialysis; Z79.4 Long term (current) use of insulin; Z79.82 Long term (current) use of aspirin; Z79.899 Other long term (current) drug therapy; Z91.119 Patient's noncompliance with dietary regimen due to unspecified reason; Z91.199 Patient's noncompliance with other medical treatment and regimen due to unspecified reason
CPT/HCPCS: 84132; 96374; 96376; 96375; 99285; 82550 ×3; 83874 ×3; 84484 ×4; 80053; 85025 ×2; 87804 ×2; 82948 ×6; 36415 ×2; 87635; 71045; 71270; 93005 ×2; 94640; 96372; 83540; 83550; 83735; 84100; 80048; 93306; 84145; J1815 ×4; G0378 ×10; J3490; J7070; J0360 ×3; J2405 ×2; J2270; Q9967; J1644 ×2; 90935; J0610

== ENCOUNTER 2022-12-07 12:29 | Emergency (ER) | payer MEDICARE ==
[~2022-12-07] VITALS: Ht 154.9 cm; Wt 70.3 kg
[~2022-12-07 12:29] MED LIST changes: -ACET-2247 PO; +AMLO-257 PO; -ATOR20TA65 PO; -BENZ-226 PO; -CINA30TA5 PO; +CINA60TA4 PO; +INSU100I3 SQ; -LORA10TA7 PO; +LOSA100T59 PO; +METO-391 PO; -MINO2.5 PO
[2022-12-07 13:00] LABS: HEMATOCRIT 31.4 % (36-48); MEAN CORPUSCULAR HEMOGLOBIN 31.5 pg (27.0-33.0); MEAN CORPUSCULAR HGB CONC 32.8 g/dL (32.0-36.0); RED BLOOD CELL COUNT(AUTO) 3.27 MIL/uL (4.00-5.50); WHITE BLOOD COUNT (AUTO) 4.5 K/uL (4.8-10.8)
[2022-12-07 13:15] LABS: CARBON DIOXIDE 27 mmol/L (21-32); CHLORIDE 93 mmol/L (101-111); CREATININE 5.2 mg/dL (0.5-1.5); GLOMERULAR FILTR. RATE CALC 9 mL/min (>90); GLUCOSE,RANDOM 244 mg/dL (70-105); POTASSIUM 3.7 mmol/L (3.5-5.1); SODIUM SERUM 136 mmol/L (136-145); UREA NITROGEN, BLOOD 40 mg/dL (7-18)
[2022-12-07 13:19] LABS: ALBUMIN 3.4 g/dL (3.5-5.0); ASPARTATE AMINOTRANSFERASE 10 U/L (10-37); BILIRUBIN,TOTAL 0.6 mg/dL (0.2-1.0); PHOSPHORUS 2.1 mg/dL (2.5-4.9); TOTAL PROTEIN, SERUM 7.7 g/dL (6.0-8.3)
[2022-12-07 13:22] LABS: ALANINE AMINOTRANSFERASE < 6 U/L (12-78)
[2022-12-07 13:23] LABS: SARS-CoV-2, RNA, NAAT NEGATIVE SARS CoV-2 (NEGATIVE)
[2022-12-07 14:48] LABS: INFLUENZA TYPE A Negative For Type A (NEGATIVE); INFLUENZA TYPE B Negative For Type B (NEGATIVE)
[2022-12-07 16:26] VITALS: BP 122/75; PULSE 84; RESP 18; O2SAT 99
== END 2022-12-07 16:33 | disposition home or self-care (01) ==
LOC: EDH 12:29
DX: I48.91 Unspecified atrial fibrillation (principal); I12.0 Hypertensive chronic kidney disease with stage 5 chronic kidney disease or end stage renal disease; E11.22 Type 2 diabetes mellitus with diabetic chronic kidney disease; N18.6 End stage renal disease; Z99.2 Dependence on renal dialysis; K21.9 Gastro-esophageal reflux disease without esophagitis; Z79.4 Long term (current) use of insulin; Z79.899 Other long term (current) drug therapy; Z20.822 Contact with and (suspected) exposure to COVID-19
CPT/HCPCS: 99285; 71045; 87635; 83735; 84100; 84484; 80053; 83880; 85027; 87804 ×2; 36415; 93005; C9803

== ENCOUNTER 2023-06-15 05:34 | Day surgery (SDC) | payer MEDICARE ==
[2023-06-15] VITALS (10 sets, daily range): BP systolic 117–170; BP diastolic 46–65; PULSE 53–62; RESP 14–17
[~2023-06-15] VITALS: Ht 157.5 cm; Wt 70.3 kg
[~2023-06-15 05:34] MED LIST changes: -AMLO-257 PO; +AMLO-343 PO; -CLON0.1T PO; -CYCL-309 PO; -INSU100I3 SQ; -LOSA100T59 PO; -SEVE800T27 PO
[2023-06-15] MEDS ORDERED: 0.9%NACL 1000ML 1,000 ML IV ONE (06:13)
[2023-06-15] MEDS ORDERED: CLON0.1T PO (06:18)
[2023-06-15] MEDS ORDERED: AMLO-258 PO (06:18)
[2023-06-15] MEDS ORDERED: ATOR10 PO (06:19)
[2023-06-15] MEDS ORDERED: INSU100C6 SQ (06:20)
[2023-06-15] MEDS ORDERED: ASPI-1005 PO (06:20)
[2023-06-15] MEDS: 0.9%NACL 1000ML 1,000 ML IV ONE (06:47)
[2023-06-15] MEDS: INSULIN HUMULIN R 100 UNIT/ML 3ML ONE (07:47)
[2023-06-15] MEDS ORDERED: PROPOFOL 10 MG/ML 20ML VIAL IV ONE (07:58)
[2023-06-15] MEDS ORDERED: LIDOCAINE HCL 1% 20 ML VIAL ONE (07:58)
== END 2023-06-15 09:35 | disposition home or self-care (01) ==
LOC: ENDO 05:34 → DAH 05:34 → ENDO 09:35
PROVIDERS: ATTEND Internal Medicine
DX: K59.04 Chronic idiopathic constipation (principal); D12.2 Benign neoplasm of ascending colon; D12.3 Benign neoplasm of transverse colon; I12.0 Hypertensive chronic kidney disease with stage 5 chronic kidney disease or end stage renal disease; E11.22 Type 2 diabetes mellitus with diabetic chronic kidney disease; N18.6 End stage renal disease; E78.5 Hyperlipidemia, unspecified; Z79.82 Long term (current) use of aspirin; Z79.899 Other long term (current) drug therapy
CPT/HCPCS: 82948 ×2; 45385; J7030 ×2; J2704; J1815; A4620; A4215; A4223; A4657; A7002; A4222; A4221; A4663; A4606; J3490

== ENCOUNTER 2023-12-28 23:41 | Emergency (ER) | payer MEDICARE ==
[~2023-12-28] VITALS: Ht 157.5 cm; Wt 74.8 kg
[~2023-12-28 23:41] MED LIST changes: -AMLO-343 PO; +ATOR20TA65 PO; -CINA60TA4 PO; +GABA-529 PO; +HYDR-4068 PO; -HYDR100T27 PO; +HYDR25TA PO; +LEVO125T11 PO; +LOSA100T59 PO; +MELO10CA3 PO; -METO-391 PO; +PIOG15TA66 PO; +PRAM0.258 PO; +TIRZ15PE SQ
[2023-12-29] MEDS: metoCLOPRAmide 10 MG/2 ML VIAL IVP ONE (00:11)
[2023-12-29 00:30] LABS: BASOPHILS # (AUTO) 0.07 K/uL (0.00-0.20); BASOPHILS % (AUTO) 0.7 % (0.0-5.0); EOSINOPHILS # (AUTO) 0.19 K/uL (0.00-0.70); HEMATOCRIT 30.1 % (36-48); IMMATURE GRANULOCYTE ABSOLUTE 0.06 K/uL (0-1); LYMPHOCYTES # (AUTO) 0.8 K/uL (1.0-4.8); LYMPHOCYTES % (AUTO) 8.4 % (21.0-51.0); MEAN CORPUSCULAR HGB CONC 33.6 g/dL (32.0-36.0); MEAN CORPUSCULAR VOLUME 98.4 fL (79-99); MONOCYTES # (AUTO) 0.9 K/uL (0.1-1.0); MONOCYTES % (AUTO) 9.7 % (3.0-13.0); NEUTROPHILS # (AUTO) 7.5 K/uL (1.8-7.7); NEUTROPHILS % (AUTO) 78.6 % (40.0-77.0); PLATELET COUNT (AUTO) 249 K/uL (130-400); RED BLOOD CELL COUNT(AUTO) 3.06 MIL/uL (4.00-5.50); RED CELL DISTRIBUTION WIDTH 13.3 % (11.0-15.5); WHITE BLOOD COUNT (AUTO) 9.5 K/uL (4.8-10.8)
[2023-12-29 00:30] LABS: INFLUENZA TYPE A Negative For Type A (NEGATIVE); INFLUENZA TYPE B Negative For Type B (NEGATIVE)
[2023-12-29 00:31] LABS: COVID19 (SARS ANTIGEN RAPID) PRESUMPTIVE NEGATIVE (NEGATIVE)
[2023-12-29 00:34] VITALS: TEMP 98.7
[2023-12-29 00:43] LABS: B-TYPE NATRIURETIC PEPTIDE 417 pg/mL (0-100)
[2023-12-29 01:44] LABS: ALBUMIN 3.7 g/dL (3.5-5.0); BILIRUBIN,TOTAL 0.7 mg/dL (0.2-1.0); MAGNESIUM 2.1 mg/dL (1.80-2.40); TOTAL PROTEIN, SERUM 7.1 g/dL (6.0-8.3)
[2023-12-29 01:48] LABS: POTASSIUM 4.6 mmol/L (3.5-5.1)
[2023-12-29 01:50] LABS: CREATININE 8.2 mg/dL (0.5-1.0)
[2023-12-29 02:41] VITALS: BP 144/58; PULSE 85; RESP 18; O2SAT 97
== END 2023-12-29 03:12 | disposition home or self-care (01) ==
LOC: EDH 23:41
DX: R51.9 Headache, unspecified (principal); Z20.822 Contact with and (suspected) exposure to COVID-19; R53.1 Weakness; R05.9 Cough, unspecified; R53.81 Other malaise; E78.00 Pure hypercholesterolemia, unspecified; I12.0 Hypertensive chronic kidney disease with stage 5 chronic kidney disease or end stage renal disease; E11.22 Type 2 diabetes mellitus with diabetic chronic kidney disease; N18.6 End stage renal disease; Z91.013 Allergy to seafood; Z79.899 Other long term (current) drug therapy; Z79.84 Long term (current) use of oral hypoglycemic drugs
CPT/HCPCS: 99285; 71045; 87426; 83735; 84484 ×2; 80053; 83880; 83690; 85025; 87804 ×2; 36415; 96374; 93005; J2765

== ENCOUNTER 2024-05-14 20:16 | Emergency (ER) | payer MEDICARE ==
[~2024-05-14] VITALS: Ht 157.5 cm; Wt 70.3 kg
--- NOTE | 2024-05-14 20:58 | ERN ---
General Chief Complaint: Rapid Heart Rate Stated Complaint: RAPID HR Time Seen by MD: 20:21 Time Seen by Midlevel: 20:21 Source: patient History of Present Illness Initial Comments The patient is a 63-year-old female with a past medical history of type 2 diabetes, hyperlipidemia, hypertension, and end-stage renal disease on hemodialysis presenting to the emergency department with palpitations that started this morning and have continuously progressed throughout the entire day. She denies any chest pain or shortness of Breath. She was followed by system sales consultant Dr. Dickens. No other concerns reported at this time Allergies: Coded Allergies: fish derived (Unverified Allergy, Intermediate, SWELLING, 10/10/22) No Known Drug Allergies (Verified Allergy, Unknown, 12/13/16) Home Meds Reported Medications Tirzepatide (Mounjaro) 15 Mg/0.5 Ml Pen.injctr, 15 MG SQ AD 08/23/23 Meloxicam, Submicronized (Meloxicam) 10 Mg Capsule, 15 MG PO DAILY, CAP 08/23/23 Gabapentin (Gabapentin) 100 Mg Capsule, 100 MG PO HS, CAP 08/23/23 Pioglitazone HCl (Pioglitazone HCl) 15 Mg Tablet, 15 MG PO DAILY, TAB 08/23/23 Levothyroxine Sodium (Levothyroxine Sodium) 125 Mcg Tablet, 125 MCG PO DAILY, TAB 08/23/23 Atorvastatin Calcium (Atorvastatin Calcium) 20 Mg Tablet, 20 MG PO HS, TAB 08/23/23 Hydrochlorothiazide (Hydrochlorothiazide) 25 Mg Tablet, 25 MG PO DAILY, TAB 08/23/23 Hydrocodone/Acetaminophen (Hydrocodon-Acetaminophn 10-325) 10 Mg-325 Mg Tablet, 1 EACH PO TIDP, TAB 08/23/23 Losartan Potassium (Losartan Potassium) 100 Mg Tablet, 100 MG PO DAILY, TAB 08/23/23 Pramipexole Di-HCl (Pramipexole Dihydrochloride) 0.25 Mg Tablet, 0.25 MG PO HS, TAB 08/23/23 Past Medical History Past Medical History: Diabetes-Type II, High Cholesterol, Hypertension, Renal Failure Medical History Other: HYPERTENSION Past Surgical History: Other, LAVA Surgical History Other: AVF LEFT UPPER ARM Family History Family History: HTN Social History Social History: Negative, Lives with family Female( History) History: Not Applicable ROS Dictation CONSTITUTIONAL: Negative except for HPI HEAD/FACE: Negative except for HPI EENT: Negative except for HPI RESPIRATORY: Negative except for HPI GASTROINTESTINAL/ABDOMINAL: Negative except for HPI GENITOURINARY: Negative except for HPI MUSCULOSKELETAL: Negative except for HPI INTEGUMENTARY: Negative except for HPI NEUROLOGICAL/PSYCH: Negative except for HPI HEMATOLOGIC/LYMPHATIC: Negative except for HPI All Systems Negative, Except as noted above. 13 point review of systems assessed and all negative except for above. Physical Exam Physical Exam Dictation Vital Signs reviewed General Appearance: Alert, oriented x 3, no acute distress, well developed, nourished. Head and Face: non-traumatic. Eyes: PERRL, pink conjunctivas, eyelid no trauma, anterior chamber with arcus senilis. Ears: Pinnas intact and no signs of trauma or erythema ear canals clear and no discharge TM no erythema Nose: No discharge, no bleeding. Oropharynx: Mouth normal, tongue pink, pharynx clear,no erythema, tonsils no exudates, no abscesses noted, mucous membrane moist Neck: Supple, non-tender, no thyromegaly, no masses, no JVD, no bruits Breast:Deferred Chest:No tenderness, no crepitus, no paradoxical movement, no retractions Lungs:Clear, well-ventilated, symmetric, no rales, no wheezing, no rhonchi, no stridor, good breath sounds bilaterally Heart: Regular rate, regular rhythm, no murmur, no gallops Vascular: no peripheral edema, Abdomen: Soft, positive bowel sounds, nondistended, no guarding, nontender, no rebound, no masses no hepatomegaly, no splenomegaly, no Wright's sign, no hernias. Rectal: Deferred Genital: Deferred Neurological: Normal speech, motor function intact, sensory function intact Musculoskeletal: Neck nontender, full range of motion, back nontender, full range of motion, Extremities: nontender, full range of motion Skin: Color pink, dry, no turgor, no rash, no lacerations, no abrasions, no contusions. Lymphatic: Deferred Results Laboratory and Microbiology Lab and Micro Result Laboratory Tests Test 05/14/24 21:00 White Blood Count 5.5 K/uL (4.8-10.8) Red Blood Count 3.50 MIL/uL (4.00-5.50) L Hemoglobin 11.7 g/dL (12.0-16.0) L Hematocrit 36.7 % (36-48) Mean Corpuscular Volume 104.9 fL (79-99) H Mean Corpuscular Hemoglobin 33.4 pg (27.0-33.0) H Mean Corpuscular Hemoglobin Concent 31.9 g/dL (32.0-36.0) L Red Cell Distribution Width 14.6 % (11.0-15.5) Platelet Count 187 K/uL (130-400) Mean Platelet Volume 9.4 fL (7.5-10.5) Immature Granulocyte % (Auto) 0.4 % (0-1) Neutrophils (%) (Auto) 63.5 % (40.0-77.0) Lymphocytes (%) (Auto) 19.2 % (21.0-51.0) L Monocytes (%) (Auto) 11.0 % (3.0-13.0) Eosinophils (%) (Auto) 4.4 % (0.0-8.0) Basophils (%) (Auto) 1.5 % (0.0-5.0) Neutrophils # (Auto) 3.5 K/uL (1.8-7.7) Lymphocytes # (Auto) 1.1 K/uL (1.0-4.8) Monocytes # (Auto) 0.6 K/uL (0.1-1.0) Eosinophils # (Auto) 0.24 K/uL (0.00-0.70) Basophils # (Auto) 0.08 K/uL (0.00-0.20) Absolute Immature Granulocyte (auto 0.02 K/uL (0-1) Nucleated Red Blood Cells 0.0 % (0.0-0.19) Sodium Level 137 mmol/L (136-145) Potassium Level 4.9 mmol/L (3.5-5.1) Chloride Level 98 mmol/L (101-111) L Carbon Dioxide Level 24 mmol/L (21-32) Blood Urea Nitrogen 59 mg/dL (7-18) H Creatinine 7.6 mg/dL (0.5-1.0) H Glomerular Filtration Rate Calc 6 mL/min (>90) Random Glucose 288 mg/dL (70-105) H Total Calcium 8.2 mg/dL (8.5-10.1) L Magnesium Level 2.70 mg/dL (1.80-2.40) H Total Creatine Kinase 60 U/L (21-232) # Troponin I High Sensitivity 17.0 ng/L (4-50) B-Type Natriuretic Peptide 663 pg/mL (0-100) H Labs Reviewed?: Yes MDM MDM: The patient is a 63-year-old female with a past medical history of type 2 diabetes, hyperlipidemia, hypertension, and end-stage renal disease on hemodialysis presenting to the emergency department with palpitations that started this morning and have continuously progressed throughout the entire day. She denies any chest pain or shortness of Breath. She was followed by system sales consultant Dr. Dickens. No other concerns reported at this time. On exam the patient is in no acute distress. Initial vital signs reveal a temperature of 98.2 with a heart rate of 77 beats per minute. Blood pressure is elevated at 196/71. Cardiac workup was initiated. CBC shows chronic anemia with a hemoglobin that is stable at 11.7. Platelets is normal. There was no leukocytosis. Chemistries reveal an elevated BUN and creatinine which is con sistent with end-stage renal disease. The patient was scheduled for dialysis tomorrow. Troponin is negative however the patient does not have any active chest pain at this time. Chest x-ray does not show any evidence of pulmonary edema or any acute cardiopulmonary process. Repeat evaluation the patient states her palpitations have completely resolved and reports feeling improved. I ordered 10 of hydralazine however blood pressure was repeated and she improved with a blood pressure of 168/74. Patient will be discharged home Differential diagnosis: ACS, fluid overload, electrolyte abnormality, dehydration There are no social concerns with this patient. Prescription drug management Prescriptions will include: None Medical management and examination interpretation discussions were had by me with other qualified healthcare professionals as indicated for the patient's care. ED Course Orders Procedure Category Date Status Time 12 Lead Ekg Tracing- EKG 05/14/24 Resulted Technical 20:25 B-Type Natriuretic LAB 05/14/24 Complete Peptide 20:25 Basic Metabolic Panel LAB 05/14/24 Complete 20:25 Cbc With Differential LAB 05/14/24 Complete 20:25 Magnesium LAB 05/14/24 Complete 20:25 Chest 1vw RAD 05/14/24 Resulted 20:25 Cardiac Panel LAB 05/14/24 Complete 20:25 Hydralazine 20mg Inj PHA 05/14/24 Complete (Apresoline 20mg In 22:00 Current Medications Medications (Trade) Dose Ordered Sig/Pema Route PRN Reason Start Time Stop Time Status Last Admin Dose Admin Hydralazine HCl (APRESOLine 20MG INJ) 10 mg ONCE ONCE IV 05/14/24 22:00 05/14/24 22:01 DC Vital Signs Date Time Temp Pulse Resp B/P (MAP) Pulse Ox O2 Delivery O2 Flow Rate FiO2 05/14/24 23:41 98.4 86 18 168/74 98 Room Air* 0 21 05/14/24 20:17 98.2 77 18 196/71 98 Room Air [facility] [address] [place] [id number] IMAGING REPORT Signed PATIENT: CRISTHIAN ACUNA MR#: [id number] : 1960 SEX: F AGE: 63 LOCATION: [facility] ORDER 33 STATUS: REG ER REPORT#: [id number] SERVICE 24 REASON: sob ORDERING PHYSICIAN: KRISHAN RIOS PROCEDURE: CXR1VW - CHEST 1VW PORTABLE CHEST RADIOGRAPH INDICATION: sob COMPARISON: 12/29/2023 FINDINGS: Heart size is normal. The pulmonary vascularity and grabiel appear normal. No abnormal pulmonary parenchymal opacity or consolidation identified. No significant pleural effusion noted. No pneumothorax detected. IMPRESSION: No radiographic evidence for any acute cardiopulmonary process. DICTATED BY: LAUREANO MATOS MD DATE: 05/14/242134 ELECTRONICALLY SIGNED BY: LAUREANO MATOS MD DATE: 05/14/242137 DX & DISP Disposition: Discharge Departure Impression: Primary Impression: Palpitations Condition: Stable Additional Instructions: Your blood work today is stable. Your cardiac enzymes are negative. Please keep appointment with your dialysis center for tomorrow. If you develop any new or worsening symptoms please report to the ER for further evaluation. Referrals: RONNIE NOEL MD (PCP) Time of Disposition: 23:35 I have reviewed the case, and I agree with, Diagnosis and Plan I performed the substantive portion of the visit. I have reviewed and per sonally made and approve the management plan that is documented in the note by myself or the MARLY. I acknowledge for responsibility for the patient's management plan. KRISHAN RIOS May 14, 2024 20:58
[2024-05-14 21:18] LABS: BASOPHILS # (AUTO) 0.08 K/uL (0.00-0.20); BASOPHILS % (AUTO) 1.5 % (0.0-5.0); EOSINOPHILS # (AUTO) 0.24 K/uL (0.00-0.70); EOSINOPHILS % (AUTO) 4.4 % (0.0-8.0); HEMATOCRIT 36.7 % (36-48); IMMATURE GRANULOCYTE ABSOLUTE 0.02 K/uL (0-1); LYMPHOCYTES # (AUTO) 1.1 K/uL (1.0-4.8); LYMPHOCYTES % (AUTO) 19.2 % (21.0-51.0); MEAN CORPUSCULAR HEMOGLOBIN 33.4 pg (27.0-33.0); MEAN CORPUSCULAR HGB CONC 31.9 g/dL (32.0-36.0); MEAN CORPUSCULAR VOLUME 104.9 fL (79-99); MONOCYTES # (AUTO) 0.6 K/uL (0.1-1.0); NEUTROPHILS # (AUTO) 3.5 K/uL (1.8-7.7); NEUTROPHILS % (AUTO) 63.5 % (40.0-77.0); PLATELET COUNT (AUTO) 187 K/uL (130-400); RED CELL DISTRIBUTION WIDTH 14.6 % (11.0-15.5); WHITE BLOOD COUNT (AUTO) 5.5 K/uL (4.8-10.8)
[2024-05-14 21:31] LABS: CREATININE 7.6 mg/dL (0.5-1.0); POTASSIUM 4.9 mmol/L (3.5-5.1)
--- NOTE | 2024-05-14 21:38 | HMCIMG ---
PORTABLE CHEST RADIOGRAPH INDICATION: sob COMPARISON: 12/29/2023 FINDINGS: Heart size is normal. The pulmonary vascularity and grabiel appear normal. No abnormal pulmonary parenchymal opacity or consolidation identified. No significant pleural effusion noted. No pneumothorax detected. IMPRESSION: No radiographic evidence for any acute cardiopulmonary process.
[2024-05-14 21:39] LABS: MAGNESIUM 2.7 mg/dL (1.80-2.40)
[2024-05-14 21:44] LABS: B-TYPE NATRIURETIC PEPTIDE 663 pg/mL (0-100)
--- NOTE | 2024-05-14 23:10 | NUR ---
PATIENT BROUGHT TO ED 18 AT THIS TIME
[2024-05-14 23:41] VITALS: BP 168/74; PULSE 86; RESP 18; TEMP 98.4; O2SAT 98
[2024-05-14] MEDS: hydrALAZine 20MG/ML VIAL IV ONE (23:46)
--- NOTE | 2024-05-15 06:32 | EKG ---
[facility] Test Date: 2024-05-14 Test Time: 20:22:50 Pat Name: CRISTHIAN ACUNA Department: [facility] Room: Gender: F Software Project Lead: [id number] : 1960 Requested By: KRISHAN RIOS Order Number: [id number] Reading MD: Violeta Garcia Measurements Intervals [place] Rate: 75 P: 37 [place]: 160 QRS: -1 QRSD: 81 T: 98 QT: 431 QTc: 482 Interpretive Statements Sinus rhythm Ventricular trigeminy Low voltage, precordial leads Nonspecific T abnormalities, lateral leads Compared to ECG 12/29/2023 02:31:05 Ventricular premature complex(es) now present Low QRS voltage now present T-wave abnormality still present Electronically Signed On 05-15-2024 10:21:54 CDT by Violeta Garcia Please click the below link to view image of tracing.
== END 2024-05-14 23:55 | disposition home or self-care (01) ==
LOC: EDH 20:16
DX: R00.2 Palpitations (principal); I12.0 Hypertensive chronic kidney disease with stage 5 chronic kidney disease or end stage renal disease; E11.22 Type 2 diabetes mellitus with diabetic chronic kidney disease; N18.6 End stage renal disease; E78.00 Pure hypercholesterolemia, unspecified; Z79.1 Long term (current) use of non-steroidal anti-inflammatories (NSAID); Z79.84 Long term (current) use of oral hypoglycemic drugs; Z79.890 Hormone replacement therapy; Z79.899 Other long term (current) drug therapy; Z99.2 Dependence on renal dialysis
CPT/HCPCS: 36415; 71045; 80048; 82550; 83735; 83880; 84484; 85025; 93005; 99285

== ENCOUNTER 2024-10-28 13:48 | Emergency (ER) | payer OTHER, MEDICARE ==
[~2024-10-28] VITALS: Ht 157.5 cm; Wt 74.8 kg
[2024-10-28 13:51] VITALS: BP 133/46; PULSE 71; RESP 19
--- NOTE | 2024-10-28 14:05 | ERN ---
ED Note History of Present Illness Stated Complaint: GBW, GAGE Chief Complaint: Multiple Complaints Time Seen by MD: 13:58 Dictation: PATIENT IS A 64-YEAR-OLD FEMALE WHO HAS A END-STAGE RENAL DISEASE WITH HEMODIALYSIS Monday AND MONDAY. SHE STATES SHE MISSED HEMODIALYSIS THIS MORNING BECAUSE SHE HAS BEEN TOO WEAK FROM GETTING THE BOWEL PREP FOR A COLONOSCOPY FROM THE UNKNOWN DOCTOR IN THE NEXT ONE OR TWO DAYS. NO CHEST PAIN NO BACK PAIN NO FEVER NO CHILLS. Allergies: Coded Allergies: fish derived (Unverified Allergy, Intermediate, SWELLING, 10/10/22) No Known Drug Allergies (Verified Allergy, Unknown, 12/13/16) Home Meds Reported Medications Tirzepatide (Mounjaro) 15 Mg/0.5 Ml Pen.injctr, 15 MG SQ AD 08/23/23 Meloxicam, Submicronized (Meloxicam) 10 Mg Capsule, 15 MG PO DAILY, CAP 08/23/23 Gabapentin (Gabapentin) 100 Mg Capsule, 100 MG PO HS, CAP 08/23/23 Pioglitazone HCl (Pioglitazone HCl) 15 Mg Tablet, 15 MG PO DAILY, TAB 08/23/23 Levothyroxine Sodium (Levothyroxine Sodium) 125 Mcg Tablet, 125 MCG PO DAILY, TAB 08/23/23 Atorvastatin Calcium (Atorvastatin Calcium) 20 Mg Tablet, 20 MG PO HS, TAB 08/23/23 Hydrochlorothiazide (Hydrochlorothiazide) 25 Mg Tablet, 25 MG PO DAILY, TAB 08/23/23 Hydrocodone/Acetaminophen (Hydrocodon-Acetaminophn 10-325) 10 Mg-325 Mg Tablet, 1 EACH PO TIDP, TAB 08/23/23 Losartan Potassium (Losartan Potassium) 100 Mg Tablet, 100 MG PO DAILY, TAB 08/23/23 Pramipexole Di-HCl (Pramipexole Dihydrochloride) 0.25 Mg Tablet, 0.25 MG PO HS, TAB 08/23/23 Past Medical History Past Medical History: Diabetes-Type II, Hypertension, Hypothyroid, Renal Failure Additional Past Medical Hx: HYPERTENSION Surgical History: None Surgical History Other: AVF LEFT UPPER ARM Family History: HTN Social History: Negative, Lives with family History: Not Applicable Initial Vital Sign VS Vital Signs Date Time Temp Pulse Resp B/P (MAP) Pulse Ox O2 Delivery O2 Flow Rate FiO2 10/28/24 13:51 71 19 133/46 100 Room Air 0 ED Course ED Course Orders Procedure Category Date Status Time Cbc With Differential LAB 10/28/24 Transmitted 14:03 Troponin I High LAB 10/28/24 Transmitted Sensitivity 14:03 12 Lead Ekg Tracing- EKG 10/28/24 Transmitted Technical 14:03 Chest 1vw RAD 10/28/24 Transmitted 14:03 Basic Metabolic Panel LAB 10/28/24 Transmitted 14:03 Vital Signs Date Time Temp Pulse Resp B/P (MAP) Pulse Ox O2 Delivery O2 Flow Rate FiO2 10/28/24 13:51 71 19 133/46 100 Room Air 0 DX & DISP Departure Condition: Stable Referrals: RONNIE NOEL MD (PCP) WANDER TYLER NP Oct 28, 2024 14:05
[2024-10-29] MEDS ORDERED: AMLO-257 PO (08:34)
[2024-10-29] MEDS ORDERED: CLON0.3T PO (08:34)
[2024-10-29] MEDS ORDERED: SEVELAMER CARBONATE PO (08:34)
[2024-10-29] MEDS ORDERED: FOLI0.8T22 PO (08:34)
[2024-10-29] MEDS ORDERED: INSU100I3 SQ (08:34)
[2024-10-29] MEDS ORDERED: MINO2.5T3 PO (08:34)
[2024-10-29] MEDS ORDERED: HYDR100T15 PO (08:34)
[2024-10-29] MEDS ORDERED: CINA30TA5 PO (08:34)
== END 2024-10-28 14:10 | disposition home or self-care (01) ==
LOC: EDH 13:48
DX: R06.02 Shortness of breath (principal); E03.9 Hypothyroidism, unspecified; E11.22 Type 2 diabetes mellitus with diabetic chronic kidney disease; I12.0 Hypertensive chronic kidney disease with stage 5 chronic kidney disease or end stage renal disease; N18.6 End stage renal disease; Z99.2 Dependence on renal dialysis; Z91.013 Allergy to seafood; Z79.899 Other long term (current) drug therapy; Z79.84 Long term (current) use of oral hypoglycemic drugs; Z79.1 Long term (current) use of non-steroidal anti-inflammatories (NSAID); Z79.890 Hormone replacement therapy
CPT/HCPCS: 99283